=== PATIENT | male | born 1960 | race American Indian/Alaskan Native ===

== ENCOUNTER 2018-09-30 01:52 | Inpatient (IN) | payer OTHER ==
[2018-09-30 02:25] LABS: Basophils # (Auto) 0.1 K/mm3 (0.0-0.1); Basophils % (Auto) 0.9 % (0.0-1.8); Eosinophils # (Auto) 0.2 K/mm3 (0.0-0.4); Eosinophils % (Auto) 1.6 % (0.0-4.3); Lymphocytes # (Auto) 2.8 K/mm3 (1.2-5.4); Lymphocytes % (Auto) 24.6 % (13.4-35.0); Mean Corpuscular HGB Conc 34 % (32-34); Mean Corpuscular Volume 85 fl (84-94); Monocytes # (Auto) 0.8 K/mm3 (0.0-0.8); Monocytes % (Auto) 7.2 % (0.0-7.3); Platelet Count 417 K/mm3 (140-440); Red Blood Count 4.83 M/mm3 (3.65-5.03); Red Cell Distribution Width 14.8 % (13.2-15.2)
[2018-09-30 02:38] LABS: Alanine Aminotransferase 14 units/L (7-56); Albumin 4.4 g/dL (3.9-5); BUN/Creatinine Ratio 8; Blood Urea Nitrogen 9 mg/dL (9-20); Calcium 9.5 mg/dL (8.4-10.2); Hemolysis Index 7
[2018-09-30] MEDS ORDERED: MORPHINE IV ONE ×2 (03:10→06:46)
[2018-09-30] MEDS ORDERED: ZOFRAN IV ONE ×2 (03:10→06:46)
[2018-09-30] MEDS ORDERED: NACL 0.9% 1000 ML 1,000 ML IV ONE (03:10)
--- NOTE | 2018-09-30 03:18 | Emergency Department Report ---
<BOBBY BANEGAS - Last Filed: 09/30/18 05:58> ED Abdominal Pain HPI - General Chief Complaint: Abdominal Pain Stated Complaint: ABDOMINAL PAIN Time Seen by Provider: 09/30/18 03:08 Source: patient Mode of arrival: Ambulatory Limitations: No Limitations - History of Present Illness Initial Comments: pt is a 58 y/o aam with hx of htn, chf, Obesity, Ventral Hernia, s/p cholecystectomy 2018, last hernia repair 2016, who presents for abd pain and n/v since this am, subjective fever, pain is 8/10 , last po intake this am, pt states he usually goes to [place] for healthcare , but pain too bad to wait tonight. MD Complaint: abdominal pain Onset/Timin -: days(s) Location: periumbilical Radiation: LLQ, RLQ Migration to: periumbilical Severity: moderate Severity scale (0 -10): 7 Quality: aching, sharp Consistency: constant Improves With: nothing Worsens With: eating Associated Symptoms: nausea, vomiting, fever, constipation - Related Data Allergies Allergy/AdvReac Type Severity Reaction Status Date / Time No Known Allergies Allergy Verified 09/30/18 06:55 ED Review of Systems Constitutional: fever. denies: chills Eyes: denies: eye pain, eye discharge, vision change ENT: denies: ear pain, throat pain Respiratory: denies: cough, shortness of breath, wheezing Cardiovascular: edema (bila le ). denies: chest pain, palpitations Endocrine: no symptoms reported Gastrointestinal: abdominal pain, nausea, constipation Genitourinary: denies: urgency, dysuria Musculoskeletal: denies: back pain, joint swelling, arthralgia Skin: denies: rash, lesions Neurological: denies: headache, weakness, paresthesias Psychiatric: denies: anxiety, depression Hematological/Lymphatic: as per HPI ED Past Medical Hx - Past Medical History Previous Medical History?: Yes Hx Hypertension: Yes Hx Congestive Heart Failure: Yes - Surgical History Past Surgical History?: Yes Hx Cholecystectomy: Yes Additional Surgical History: hernia sx - Social History Smoking Status: Never Smoker ED Physical Exam - General Limitations: No Limitations General appearance: alert, in no apparent distress - Head Head exam: Present: atraumatic, normocephalic - Eye Eye exam: Present: normal appearance, PERRL, EOMI Pupils: Present: normal accommodation - ENT ENT exam: Present: normal orophraynx, mucous membranes moist, TM's normal bilaterally, normal external ear exam - Neck Neck exam: Present: normal inspection, full ROM. Absent: tenderness, meningismus, lymphadenopathy, thyromegaly - Expanded Neck Exam Expanded Neck exam: Absent: tenderness, midline deformity, anterior neck swelling, thyroid mass, carotid bruit, tracheal deviation - Respiratory Respiratory exam: Present: normal lung sounds bilaterally. Absent: respiratory distress, wheezes, stridor, chest wall tenderness, prolonged expiratory - Cardiovascular Cardiovascular Exam: Present: regular rate, normal rhythm, normal heart sounds - GI/Abdominal GI/Abdominal exam: Present: soft, distended, tenderness, guarding, rebound, diminished bowel sounds, hernia. Absent: rigid, bruit - Rectal Rectal exam: Present: deferred - Extremities Exam Extremities exam: Present: normal inspection, full ROM, normal capillary refill, pedal edema (mild bilat LE Edema nonpitting). Absent: tenderness, joint swel ling, calf tenderness - Back Exam Back exam: Present: normal inspection, full ROM. Absent: tenderness, CVA tenderness (R), CVA tenderness (L), muscle spasm, paraspinal tenderness, vertebral tenderness, rash noted - Neurological Exam Neurological exam: Present: alert, oriented X3, CN II-XII intact, normal gait, reflexes normal. Absent: motor sensory deficit - Psychiatric Psychiatric exam: Present: normal affect, normal mood - Skin Skin exam: Present: warm, dry, intact, normal color. Absent: rash ED Medical Decision Making - Lab Data Result diagrams: 09/30/18 02:03 09/30/18 02:00 - Radiology Data Radiology results: report reviewed, image reviewed Ordering Physician: BOBBY BANEGAS NP Date of Service: 09/30/18 Procedure(s): XR chest routine 2V Accession Number(s): [id number] cc: BOBBY BANEGAS NP Fluoro Time In Minutes: CHEST 2 VIEWS INDICATION / CLINICAL INFORMATION: Shortness of breath for 3 days. COMPARISON: None available. FINDINGS: SUPPORT DEVICES: None. HEART / MEDIASTINUM: No significant abnormality. LUNGS / PLEURA: There is mild bibasilar atelectasis. The lungs are otherwise clear. No significant pleural effusion. No pneumothorax. ADDITIONAL FINDINGS: No significant additional findings. IMPRESSION: Bibasilar atelectasis. Signer Name: Dakota Montoya MD Signed: 09/30/2018 4:02 AM Workstation Name: [id number] Transcribed By: MN Dictated By: Dakota Montoya MD Electronically Authenticated By: Dakota Montoya MD Signed Date/Time: 09/30/18401 DD/ 0 TD/TT: ED Disposition Clinical Impression: SBO (small bowel obstruction), Ventral hernia Disposition: OP ADMIT IP TO THIS HOSP Condition: Stable [facility] - 3-5 Days <LOLA TURCIOS - Last Filed: 09/30/18 08:47> ED Course - Reevaluation(s) Reevaluation #1: 09/30/18 07:00 sign out from Bobby Banegas NP to Lola Turcios PA-C pending CT abd/pelvis 7:30 AM: CT ab/pelvis shows SBO with multiple ventral hernias with dilated loops of bowel present in the hernia, pt made NPO, NGT ordered, case discussed with Dr. Dillon, Dr. Dillon took over pt and pt moved to the Main ED ED Medical Decision Making - Lab Data Result diagrams: 09/30/18 02:03 09/30/18 02:00 <CLIVE DILLON - Last Filed: 09/30/18 09:23> ED Review of Systems ROS: Stated complaint: ABDOMINAL PAIN Other details as noted in HPI ED Course Vital Signs 09/30/18 09/30/18 01:53 08:48 Temperature 97.6 F Pulse Rate 76 76 Respiratory 19 16 Rate Blood Pressure 193/104 Blood Pressure 141/91 [Left] O2 Sat by Pulse 96 97 Oximetry - Reevaluation(s) Reevaluation #2: 09/30/18 09:23 Patient received Dilaudid 1 mg since the NG tube. Patient placed in supine position I attempted to reduce right sided ventral hernia lateral to the midline incisional scar. I was able to partially reduce but unable to completely reduce this hernia. - Consultations Consultation #1: 09/30/18 08:09 case d/w Dr Hernandez, will consult ED Medical Decision Making - Lab Data Result diagrams: 09/30/18 02:03 09/30/18 02:00 - Medical Decision Making additional pain meds ordered ngt surgery consult hospitalist informed Critical Care Time: No Critical care attestation.: If time is entered above; I have spent that time in minutes in the direct care of this critically ill patient, excluding procedure time. ED Disposition Is pt being admited?: Yes Time of Disposition: 08:09 (Dr alegria/hosp)
[2018-09-30 03:55] LABS: INR 0.99 (0.87-1.13)
[2018-09-30 03:56] LABS: Partial Thromboplastin Time 26.5 Sec. (24.2-36.6)
--- NOTE | 2018-09-30 04:06 | XRay Report ---
CHEST 2 VIEWS INDICATION / CLINICAL INFORMATION: Shortness of breath for 3 days. COMPARISON: None available. FINDINGS: SUPPORT DEVICES: None. HEART / MEDIASTINUM: No significant abnormality. LUNGS / PLEURA: There is mild bibasilar atelectasis. The lungs are otherwise clear. No significant pl eural effusion. No pneumothorax. ADDITIONAL FINDINGS: No significant additional findings. IMPRESSION: Bibasilar atelectasis. Signer Name: Dakota Montoya MD Signed: 09/30/2018 4:02 AM Workstation Name: [id number]
[2018-09-30 04:47] LABS: Bilirubin,Urine NEG (Negative); Blood,Urine MOD (Negative); Color,Urine Yellow (Yellow); Mucus,Urine FEW /HPF; Urobilinogen,Urine < 2.0 mg/dL (<2.0)
[2018-09-30] MEDS ORDERED: ZOFRAN ONE (06:43)
[2018-09-30] MEDS ORDERED: MORPHINE ONE (06:43)
--- NOTE | 2018-09-30 07:28 | Cat Scan Report ---
CT ABDOMEN AND PELVIS WITH CONTRAST HISTORY: Right mid abdominal pain. Hernia. COMPARISON: No relevant prior imaging study available. TECHNIQUE: Axial, coronal and sagittal CT imaging of the abdomen and pelvis was performed after inje ction of 100 cc Omnipaque [address] scans at this location are performed using CT dose re duction for ALARA by means of automated exposure control. FINDINGS: LOWER CHEST: Mild dependent atelectasis is noted bilaterally. No additional significant abnormality. LIVER: No significant abnormality. BILIARY: The gallbladder is absent. No biliary ductal dilatation. PANCREAS: No significant abnormality. SPLEEN: No significant abnormality. ADRENALS: No significant abnormality. KIDNEYS AND URETERS: Bilateral renal cysts are seen without suspicious lesions. No stones or hydroure teronephrosis. GI TRACT: There are multiple ventral hernias containing fat and mildly dilated bowel loops without si gnificant inflammation. A transition point is seen near the surgical anastomosis located along the ri ght lower quadrant on images 58-71 of series 301. No significant abnormality of the stomach or colon. Unremarkable appendix. PERITONEUM: No free fluid. No free air. No fluid collection. LYMPH NODES: No significant adenopathy. VASCULATURE: The aorta is normal in caliber with mild generalized atherosclerosis. URINARY BLADDER: No significant abnormality. REPRODUCTIVE ORGANS: No significant abnormality. ADDITIONAL FINDINGS: None. SKELETAL SYSTEM: No significant abnormality. IMPRESSION: 1. Small bowel obstruction with a transition point as described above. 2. Multiple ventral hernias containing dilated bowel loops. Signer Name: Dakota Montoya MD Signed: 09/30/2018 7:24 AM Workstation Name: [id number]
[2018-09-30] MEDS ORDERED: DILAUDID IV ONE (07:54)
[2018-09-30] MEDS ORDERED: LIDOCAINE VISCOUS 2% PO ONE (07:54)
[2018-09-30] MEDS ORDERED: ZOFRAN IV PRN (10:07)
[2018-09-30] MEDS ORDERED: SODIUM CHLORIDE FLUSH SYRINGE 10 ML IV PRN (10:07)
--- NOTE | 2018-09-30 10:07 | History and Physical Report ---
History of Present Illness Date of examination: 09/30/18 Date of admission: 09/30/18 09:05 Chief complaint: n/v History of present illness: A 58-year-old male with past medical history of hypertension, CHF, obesity, ventral hernia, status post cholecystectomy in 2018 and hernia repair in 2017 who presents to emergency department with chief complaint of nausea, vomiting and abdominal pain. The patient reports that his nausea vomiting started this morning. He also reported subjective fever. Abdominal pain is diffuse and 8/10 in intensity. He denies any chest pain or shortness of breath. No headache or visual disturbances. No hematemesis. Past History Past Medical History: heart failure, hypertension, other (obesity) Past Surgical History: cholecystectomy, hernia repair Social history: no significant social history Family history: no significant family history Medications and Allergies Allergies Allergy/AdvReac Type Severity Reaction Status Date / Time No Known Allergies Allergy Verified 09/30/18 06:55 Home Medications Medication Instructions Recorded Confirmed Last Taken Type Unobtainable 09/30/18 09/30/18 Unknown History Review of Systems All systems: negative Exam - Constitutional Vitals: Temp Pulse Resp BP Pulse Ox 97.6 F 76 16 141/91 97 09/30/18 01:53 09/30/18 08:48 09/30/18 08:48 09/30/18 08:48 09/30/18 08:48 General appearance: Present: no acute distress, obese - EENT Eyes: Present: PERRL ENT: hearing intact, clear oral mucosa - Neck Neck: Present: supple, normal ROM - Respiratory Respiratory effort: normal Respiratory: bilateral: CTA - Cardiovascular Heart Sounds: Present: S1 & S2. Absent: rub, click - Extremities Extremities: pulses symmetrical, No edema Peripheral Pulses: within normal limits - Abdominal General gastrointestinal: Present: soft, non-tender, non-distended, normal bowel sounds Localized gastrointestinal: tender: diffuse (mild) Male genitourinary: Present: normal - Integumentary Integumentary: Present: clear, warm, dry - Musculoskeletal Musculoskeletal: gait normal, strength equal bilaterally - Psychiatric Psychiatric: appropriate mood/affect, intact judgment & insight - Neurologic Neurologic: CNII-XII intact, moves all extremities Results - Labs CBC & Chem 7: 09/30/18 02:03 09/30/18 02:00 Labs: Laboratory Last Values WBC 11.4 K/mm3 (4.5-11.0) H 09/30/18 02:03 RBC 4.83 M/mm3 (3.65-5.03) 09/30/18 02:03 Hgb 14.0 gm/dl (11.8-15.2) 09/30/18 02:03 Hct 41.0 % (35.5-45.6) 09/30/18 02:03 MCV 85 fl (84-94) 09/30/18 02:03 MCH 29 pg (28-32) 09/30/18 02:03 MCHC 34 % (32-34) 09/30/18 02:03 RDW 14.8 % (13.2-15.2) 09/30/18 02:03 Plt Count 417 K/mm3 (140-440) 09/30/18 02:03 Lymph % (Auto) 24.6 % (13.4-35.0) 09/30/18 02:03 Kaufman % (Auto) 7.2 % (0.0-7.3) 09/30/18 02:03 Eos % (Auto) 1.6 % (0.0-4.3) 09/30/18 02:03 Baso % (Auto) 0.9 % (0.0-1.8) 09/30/18 02:03 Lymph # 2.8 K/mm3 (1.2-5.4) 09/30/18 02:03 Kaufman # 0.8 K/mm3 (0.0-0.8) 09/30/18 02:03 Eos # 0.2 K/mm3 (0.0-0.4) 09/30/18 02:03 Baso # 0.1 K/mm3 (0.0-0.1) 09/30/18 02:03 Seg Neutrophils % 65.7 % (40.0-70.0) 09/30/18 02:03 Seg Neutrophils # 7.5 K/mm3 (1.8-7.7) 09/30/18 02:03 PT 12.8 Sec. (12.2-14.9) 09/30/18 03:20 INR 0.99 (0.87-1.13) 09/30/18 03:20 APTT 26.5 Sec. (24.2-36.6) 09/30/18 03:20 Sodium 140 mmol/L (137-145) 09/30/18 02:00 Potassium 3.7 mmol/L (3.6-5.0) 09/30/18 02:00 Chloride 99.3 mmol/L (98-107) 09/30/18 02:00 Carbon Dioxide 29 mmol/L (22-30) 09/30/18 02:00 15 mmol/L 09/30/18 02:00 BUN 9 mg/dL (9-20) 09/30/18 02:00 1.1 mg/dL (0.8-1.5) 09/30/18 02:00 Estimated GFR > 60 ml/min 09/30/18 02:00 8 % 09/30/18 02:00 Glucose 136 mg/dL (75-100) H 09/30/18 02:00 Lactic Acid 1.60 mmol/L (0.7-2.0) 09/30/18 03:20 Calcium 9.5 mg/dL (8.4-10.2) 09/30/18 02:00 0.20 mg/dL (0.1-1.2) 09/30/18 02:00 AST 18 units/L (5-40) 09/30/18 02:00 ALT 14 units/L (7-56) 09/30/18 02:00 78 units/L (35-129) 09/30/18 02:00 < 0.010 ng/mL (0.00-0.029) 09/30/18 03:20 8.4 g/dL (6.3-8.2) H 09/30/18 02:00 4.4 g/dL (3.9-5) 09/30/18 02:00 1.1 % 09/30/18 02:00 40 units/L (13-60) 09/30/18 03:20 Yellow (Yellow) 09/30/18 04:32 Clear (Clear) 09/30/18 04:32 5.0 (5.0-7.0) 09/30/18 04:32 Ur Specific Speculator 1.018 (1.003-1.030) 09/30/18 04:32 30 mg/dl mg/dL (Negative) 09/30/18 04:32 Neg mg/dL (Negative) 09/30/18 04:32 Neg mg/dL (Negative) 09/30/18 04:32 Mod (Negative) 09/30/18 04:32 Neg (Negative) 09/30/18 04:32 Neg (Negative) 09/30/18 04:32 < 2.0 mg/dL (<2.0) 09/30/18 04:32 Ur Leukocyte Esterase Neg (Negative) 09/30/18 04:32 1.0 /HPF (0.0-6.0) 09/30/18 04:32 3.0 /HPF (0.0-6.0) 09/30/18 04:32 U Epithel Cells (Auto) < 1.0 /HPF (0-13.0) 09/30/18 04:32 Few /HPF 09/30/18 04:32 Assessment and Plan Assessment and plan: Small bowel obstruction. CT scan revealed small bowel obstruction with a transition point seen near the surgical anastomosis located along the right lower quadrant. Surgery consultation pending. Conservative management for now with NPO status, NG tube to intermittent suction and IV fluid hydration Ventral hernia. Per surgery. Hypertension. IV hydralazine when necessary while nothing by mouth. Hyperlipidemia. Morbid obesity.
--- NOTE | 2018-09-30 12:31 | Progress Note ---
Assessment and Plan Full consult dictated: Morbidly obese male. sbo. multiple abd surgeries with multiple ventral / incisional hernias. no evidence of incarceration; clinically or on CT imp morbid obesity multitude of non incarcerated ventral hernias sbo rec NPO NG suction f/u abd series in am. may need bariatric surg eval in sbo does not resolve will follow History of present illness: A 58-year-old male with past medical history of hypertension, CHF, obesity, ventral hernia, status post cholecystectomy in 2018 and hernia repair in 2017 who presents to emergency department with chief complaint of nausea, vomiting and abdominal pain. The patient reports that his nausea vomiting started this morning. He also reported subjective fever. Abdominal pain is diffuse and 8/10 in intensity. He denies any chest pain or shortness of breath. No headache or visual disturbances. No hematemesis. Past History Past Medical History: heart failure, hypertension, other (obesity) Past Surgical History: cholecystectomy, hernia repair Social history: no significant social history Family history: no significant family history Selected Entries 09/30/18 09/30/18 01:53 08:48 Temperature 97.6 F Pulse Rate 76 Respiratory 16 Rate Blood Pressure 141/91 [Left] Laboratory Tests 09/30/18 09/30/18 02:00 02:03 WBC 11.4 H Hgb 14.0 Hct 41.0 Potassium 3.7 Objective Vital Signs - 12hr 09/30/18 09/30/18 01:53 08:48 Temperature 97.6 F Pulse Rate 76 76 Respiratory 19 16 Rate Blood Pressure 193/104 Blood Pressure 141/91 [Left] O2 Sat by Pulse 96 97 Oximetry - Labs 09/30/18 02:03 09/30/18 02:00 Diabetes panel 09/30/18 Range/Units 02:00 Sodium 140 (137-145) mmol/L Potassium 3.7 (3.6-5.0) mmol/L Chloride 99.3 (98-107) mmol/L Carbon Dioxide 29 (22-30) mmol/L BUN 9 (9-20) mg/dL Creatinine 1.1 (0.8-1.5) mg/dL Glucose 136 H (75-100) mg/dL Calcium 9.5 (8.4-10.2) mg/dL AST 18 (5-40) units/L ALT 14 (7-56) units/L Alkaline Phosphatase 78 (35-129) units/L Total Protein 8.4 H (6.3-8.2) g/dL Albumin 4.4 (3.9-5) g/dL Calcium panel 09/30/18 Range/Units 02:00 Calcium 9.5 (8.4-10.2) mg/dL Albumin 4.4 (3.9-5) g/dL Pituitary panel 09/30/18 Range/Units 02:00 Sodium 140 (137-145) mmol/L Potassium 3.7 (3.6-5.0) mmol/L Chloride 99.3 (98-107) mmol/L Carbon Dioxide 29 (22-30) mmol/L BUN 9 (9-20) mg/dL Creatinine 1.1 (0.8-1.5) mg/dL Glucose 136 H (75-100) mg/dL Calcium 9.5 (8.4-10.2) mg/dL Adrenal panel 09/30/18 Range/Units 02:00 Sodium 140 (137-145) mmol/L Potassium 3.7 (3.6-5.0) mmol/L Chloride 99.3 (98-107) mmol/L Carbon Dioxide 29 (22-30) mmol/L BUN 9 (9-20) mg/dL Creatinine 1.1 (0.8-1.5) mg/dL Glucose 136 H (75-100) mg/dL Calcium 9.5 (8.4-10.2) mg/dL Total Bilirubin 0.20 (0.1-1.2) mg/dL AST 18 (5-40) units/L ALT 14 (7-56) units/L Alkaline Phosphatase 78 (35-129) units/L Total Protein 8.4 H (6.3-8.2) g/dL Albumin 4.4 (3.9-5) g/dL
--- NOTE | 2018-09-30 14:35 | XRay Report ---
ABDOMINAL SERIES WITH PA CHEST 09/30/2018 INDICATION / CLINICAL INFORMATION: sbo. COMPARISON: 09/30/2018 abdominal/pelvic CT scan FINDINGS: The nasogastric tube is called mid stomach. There is persistent gaseous distention of several loops of small bowel localized to the upper abdomen . The colon remains nondistended. Urinary bladder is filled with contrast from recent abdominal CT scan. The accompanying chest x-ray shows mild atelectatic changes at both lung bases but no areas of airspa ce consolidation. IMPRESSION: No significant change in gaseous distention of small bowel. Signer Name: Claudio Dillard MD Signed: 09/30/2018 2:31 PM Workstation Name: [id number]
[2018-09-30] MEDS: D5/0.45NS 1,000 ML IV SCH (14:40)
[2018-09-30] MEDS: PEPCID IV SCH ×2 (14:41→22:33)
[2018-09-30] MEDS: MORPHINE IV PRN (15:03)
[2018-09-30] MEDS: SODIUM CHLORIDE FLUSH SYRINGE 10 ML IV SCH (22:33)
[2018-09-30] MEDS ORDERED: APRESOLINE IV PRN (23:49)
--- NOTE | 2018-10-01 00:35 | Consultation ---
REASON FOR CONSULTATION: Rule out small bowel obstruction. HISTORY OF PRESENT ILLNESS: The patient is a 58-year-old morbidly obese male who presented to the Emergency Room with recent onset of abdominal pain. Denied any nausea or vomiting. States his last bowel movement was yesterday. PAST MEDICAL HISTORY: Pertinent for morbid obesity as well as hypertension and sleep apnea. PAST SURGICAL HISTORY: The patient has had a multitude of abdominal surgeries, all done at [facility]. Apparently, the patient had a cholecystectomy, also umbilical hernia repair. Subsequent incisional hernia repair with some sort of bowel resection ? ALLERGIES: No known allergies. MEDICATIONS: " FAMILY HISTORY: Negative. SOCIAL HISTORY: Quit smoking and drinking approximately 15 years ago. PHYSICAL EXAMINATION: GENERAL: At this time revealed the patient to be morbidly obese. NG tube is in place and appears to be suctioning well. VITAL SIGNS: Show him to be afebrile with a temperature of 97.6, blood pressure is 141/91, pulse of 76, respirations 16. ABDOMEN: Examination of the abdomen once again reveals it to be morbidly obese. There are multiple scars noted. Also, multiple ventral/incisional hernias are seen. All of them appear to be reducible. No abdominal pain is noted at this time. LABORATORY DATA: Lab work at present includes a CBC, which shows a white count of 11.4, H and H is 14 and 41. Electrolytes are essentially within normal limits, including a sodium of 140, potassium 3.7, chloride of 99, BUN is 9, creatinine is 1.1. LFTs are also within normal limits. Glucose is 136. CT scan of the abdomen without any p.o. contrast was done, which I have reviewed with the radiologist. The findings are consistent with a small bowel obstruction, but the areas of herniation did not appear to be incarcerated, as dilated bowel loops were noted to come in and out of the hernia regions. Complex hernias are noted. IMPRESSION: At this time is that of a 58-year-old hypertensive, morbidly obese male, rule out small-bowel obstruction. RECOMMENDATIONS: At this time is to keep the patient n.p.o. on IV fluid hydration and NG suction. I will repeat abdominal series in the morning. Also, contemplate obtaining a bariatric surgeon evaluation if the small-bowel obstruction does not appear to be resolving, and thus, surgical intervention may need to be contemplated. I will follow with you. Thank you very much for consultation. JOB# [id number] LINDA/AYAZ
[2018-10-01 07:50] LABS: Basophils % (Auto) 0.4 % (0.0-1.8); Eosinophils # (Auto) 0.2 K/mm3 (0.0-0.4); Eosinophils % (Auto) 2.5 % (0.0-4.3); Hematocrit 40.6 % (35.5-45.6); Hemoglobin 13.5 gm/dl (11.8-15.2); Lymphocytes % (Auto) 30.4 % (13.4-35.0); Mean Corpuscular HGB Conc 33 % (32-34); Mean Corpuscular Volume 86 fl (84-94); Monocytes # (Auto) 0.9 K/mm3 (0.0-0.8); Platelet Count 354 K/mm3 (140-440); Red Blood Count 4.74 M/mm3 (3.65-5.03); Red Cell Distribution Width 14.8 % (13.2-15.2)
[2018-10-01 08:10] LABS: Alanine Aminotransferase 19 units/L (7-56); BUN/Creatinine Ratio 11; Blood Urea Nitrogen 11 mg/dL (9-20); Calcium 9.1 mg/dL (8.4-10.2); Hemolysis Index 7
--- NOTE | 2018-10-01 09:37 | XRay Report ---
ABDOMINAL SERIES WITH PA CHEST X-RAY 10/01/2018 INDICATION / CLINICAL INFORMATION: sbo. COMPARISON: 09/30/2018 FINDINGS: Small bowel gaseous distention is slightly improved. The colon gas pattern remains normal. No evidence of peritoneum. The accompanying chest x-ray shows no acute pulmonary disease. Signer Name: Claudio Dillard MD Signed: 10/01/2018 9:33 AM Workstation Name: [id number]
--- NOTE | 2018-10-01 10:20 | Progress Note ---
Assessment and Plan Pt somnolent but arousable (sleep apnea, hypoxemia? recent sedation?). Pulled out ng and had refused re-insertion. states "feeling better" Abd - slightly decreased distention. non tender Abd series - slight improvement stressed to pt the importance of ng tube reinsertion. Pt morbidly obese and very high risks of morbidity if re exploration required. needs ng suction Rx to try and prevent surgical exploration. Pt now states will accept reinsertion of ng. R.N. present during our discussion begin mineral oil thru ng repeat abd series in am Selected Entries 10/01/18 05:01 Temperature 98.0 F Pulse Rate 79 Respiratory 20 Rate Blood Pressure 148/91 Laboratory Tests 10/01/18 10/01/18 07:23 07:23 WBC 9.8 Hgb 13.5 Hct 40.6 Potassium 3.7 Objective Vital Signs - 12hr 09/30/18 10/01/18 10/01/18 23:30 00:02 05:01 Temperature 98.9 F 98.0 F Pulse Rate 85 85 79 Respiratory 20 20 Rate Blood Pressure 180/106 180/106 148/91 O2 Sat by Pulse 94 94 Oximetry - Labs 10/01/18 07:23 10/01/18 07:23 Diabetes panel 10/01/18 Range/Units 07:23 Sodium 143 (137-145) mmol/L Potassium 3.7 (3.6-5.0) mmol/L Chloride 103.3 (98-107) mmol/L Carbon Dioxide 30 (22-30) mmol/L BUN 11 (9-20) mg/dL Creatinine 1.0 (0.8-1.5) mg/dL Glucose 106 H (75-100) mg/dL Calcium 9.1 (8.4-10.2) mg/dL AST 15 (5-40) units/L ALT 19 (7-56) units/L Alkaline Phosphatase 74 (35-129) units/L Total Protein 7.8 (6.3-8.2) g/dL Albumin 4.0 (3.9-5) g/dL Calcium panel 10/01/18 Range/Units 07:23 Calcium 9.1 (8.4-10.2) mg/dL Albumin 4.0 (3.9-5) g/dL Pituitary panel 10/01/18 Range/Units 07:23 Sodium 143 (137-145) mmol/L Potassium 3.7 (3.6-5.0) mmol/L Chloride 103.3 (98-107) mmol/L Carbon Dioxide 30 (22-30) mmol/L BUN 11 (9-20) mg/dL Creatinine 1.0 (0.8-1.5) mg/dL Glucose 106 H (75-100) mg/dL Calcium 9.1 (8.4-10.2) mg/dL Adrenal panel 10/01/18 Range/Units 07:23 Sodium 143 (137-145) mmol/L Potassium 3.7 (3.6-5.0) mmol/L Chloride 103.3 (98-107) mmol/L Carbon Dioxide 30 (22-30) mmol/L BUN 11 (9-20) mg/dL Creatinine 1.0 (0.8-1.5) mg/dL Glucose 106 H (75-100) mg/dL Calcium 9.1 (8.4-10.2) mg/dL Total Bilirubin 0.60 (0.1-1.2) mg/dL AST 15 (5-40) units/L ALT 19 (7-56) units/L Alkaline Phosphatase 74 (35-129) units/L Total Protein 7.8 (6.3-8.2) g/dL Albumin 4.0 (3.9-5) g/dL
--- NOTE | 2018-10-01 11:12 | Progress Note ---
Assessment and Plan Assessment and plan: Small bowel obstruction. CT scan revealed small bowel obstruction with a transition point seen near the surgical anastomosis located along the right lower quadrant. Surgery following. Conservative management for now with NPO status, NG tube to intermittent suction and IV fluid hydration. Patient issa saenz pulled out NG tube and refused reinsertion. Surgery has now convinced the patient to have it reinserted. Ventral hernia. Per surgery. Hypertension. IV hydralazine when necessary while nothing by mouth. Hyperlipidemia. Morbid obesity. Probable OHS/SERGIO. Continue O2 History Interval history: Pulled out ng and had refused re-insertion. states "feeling better" Hospitalist Physical - Constitutional Vitals: Temp Pulse Resp BP Pulse Ox 98.0 F 79 20 148/91 94 10/01/18 05:01 10/01/18 05:01 10/01/18 05:01 10/01/18 05:01 10/01/18 05:01 General appearance: Present: no acute distress, obese - EENT Eyes: Present: PERRL, EOM intact ENT: hearing intact, clear oral mucosa, dentition normal - Neck Neck: Present: supple, normal ROM - Respiratory Respiratory effort: normal Respiratory: bilateral: CTA - Cardiovascular Rhythm: regular Heart Sounds: Present: S1 & S2. Absent: gallop, rub - Extremities Extremities: no ischemia, No edema, Full ROM - Abdominal General gastrointestinal: soft, non-tender, non-distended, normal bowel sounds - Integumentary Integumentary: Present: clear, warm, dry - Neurologic Neurologic: CNII-XII intact, moves all extremities Results - Labs CBC & Chem 7: 10/01/18 07:23 10/01/18 07:23 Labs: Laboratory Last Values WBC 9.8 K/mm3 (4.5-11.0) 10/01/18 07:23 RBC 4.74 M/mm3 (3.65-5.03) 10/01/18 07:23 Hgb 13.5 gm/dl (11.8-15.2) 10/01/18 07:23 Hct 40.6 % (35.5-45.6) 10/01/18 07:23 MCV 86 fl (84-94) 10/01/18 07:23 MCH 29 pg (28-32) 10/01/18 07:23 MCHC 33 % (32-34) 10/01/18 07:23 RDW 14.8 % (13.2-15.2) 10/01/18 07:23 Plt Count 354 K/mm3 (140-440) 10/01/18 07:23 Lymph % (Auto) 30.4 % (13.4-35.0) 10/01/18 07:23 [place] % (Auto) 9.0 % (0.0-7.3) H 10/01/18 07:23 Eos % (Auto) 2.5 % (0.0-4.3) 10/01/18 07:23 Baso % (Auto) 0.4 % (0.0-1.8) 10/01/18 07:23 Lymph # 3.0 K/mm3 (1.2-5.4) 10/01/18 07:23 [place] # 0.9 K/mm3 (0.0-0.8) H 10/01/18 07:23 Eos # 0.2 K/mm3 (0.0-0.4) 10/01/18 07:23 Baso # 0.0 K/mm3 (0.0-0.1) 10/01/18 07:23 Seg Neutrophils % 57.7 % (40.0-70.0) 10/01/18 07:23 Seg Neutrophils # 5.7 K/mm3 (1.8-7.7) 10/01/18 07:23 PT 12.8 Sec. (12.2-14.9) 09/30/18 03:20 INR 0.99 (0.87-1.13) 09/30/18 03:20 APTT 26.5 Sec. (24.2-36.6) 09/30/18 03:20 Sodium 143 mmol/L (137-145) 10/01/18 07:23 Potassium 3.7 mmol/L (3.6-5.0) 10/01/18 07:23 Chloride 103.3 mmol/L (98-107) 10/01/18 07:23 Carbon Dioxide 30 mmol/L (22-30) 10/01/18 07:23 13 mmol/L 10/01/18 07:23 BUN 11 mg/dL (9-20) 10/01/18 07:23 1.0 mg/dL (0.8-1.5) 10/01/18 07:23 Estimated GFR > 60 ml/min 10/01/18 07:23 11 % 10/01/18 07:23 Glucose 106 mg/dL (75-100) H 10/01/18 07:23 Lactic Acid 1.60 mmol/L (0.7-2.0) 09/30/18 03:20 Calcium 9.1 mg/dL (8.4-10.2) 10/01/18 07:23 0.60 mg/dL (0.1-1.2) 10/01/18 07:23 AST 15 units/L (5-40) 10/01/18 07:23 ALT 19 units/L (7-56) 10/01/18 07:23 74 units/L (35-129) 10/01/18 07:23 < 0.010 ng/mL (0.00-0.029) 09/30/18 03:20 7.8 g/dL (6.3-8.2) 10/01/18 07:23 4.0 g/dL (3.9-5) 10/01/18 07:23 1.1 % 10/01/18 07:23 40 units/L (13-60) 09/30/18 03:20 Yellow (Yellow) 09/30/18 04:32 Clear (Clear) 09/30/18 04:32 5.0 (5.0-7.0) 09/30/18 04:32 Ur Specific [place] 1.018 (1.003-1.030) 09/30/18 04:32 30 mg/dl mg/dL (Negative) 09/30/18 04:32 Neg mg/dL (Negative) 09/30/18 04:32 Neg mg/dL (Negative) 09/30/18 04:32 Mod (Negative) 09/30/18 04:32 Neg (Negative) 09/30/18 04:32 Neg (Negative) 09/30/18 04:32 < 2.0 mg/dL (<2.0) 09/30/18 04:32 Ur Leukocyte Esterase Neg (Negative) 09/30/18 04:32 1.0 /HPF (0.0-6.0) 09/30/18 04:32 3.0 /HPF (0.0-6.0) 09/30/18 04:32 U Epithel Cells (Auto) < 1.0 /HPF (0-13.0) 09/30/18 04:32 Few /HPF 09/30/18 04:32 Active Medications - Current Medications Current Medications: Generic Name Dose Route Start Last Admin Trade Name Freq PRN Reason Stop Dose Admin Acetaminophen 650 mg 09/30/18 10:07 Tylenol PO Q4H PRN Pain MILD(1-3)/Fever >100.5/GU Famotidine 20 mg 09/30/18 13:00 09/30/18 22:33 Pepcid IV 20 mg BID VALENCIA Administration Hydralazine HCl 5 mg 09/30/18 23:49 10/01/18 00:02 Apresoline IV 5 mg Q6H PRN Administration Hypertension Dextrose/Sodium Chloride 1,000 mls @ 75 mls/hr 09/30/18 11:00 09/30/18 14:40 D5/0.45ns IV 75 mls/hr DIRECT VALENCIA Administration Morphine Sulfate 2 mg 09/30/18 14:46 09/30/18 15:03 Morphine IV 2 mg Q6H PRN Administration Pain, Moderate (4-6) Ondansetron HCl 4 mg 09/30/18 10:07 Zofran IV Q8H PRN Nausea And Vomiting Sodium Chloride 10 ml 09/30/18 22:00 09/30/18 22:33 Sodium Chloride Flush Syringe 10 Ml IV 10 ml BID VALENCIA Administration Sodium Chloride 10 ml 09/30/18 10:07 Sodium Chloride Flush Syringe 10 Ml IV PRN PRN LINE FLUSH
[2018-10-01] MEDS: SODIUM CHLORIDE FLUSH SYRINGE 10 ML IV SCH ×2 (11:25→23:00)
[2018-10-01] MEDS: D5/0.45NS 1,000 ML IV SCH ×2 (11:25→23:35)
[2018-10-01] MEDS: PEPCID IV SCH ×2 (11:25→22:59)
[2018-10-01] MEDS: MORPHINE IV PRN ×2 (12:25→18:47)
[2018-10-01] MEDS: TYLENOL PO PRN ×2 (15:49→21:07)
[2018-10-01] MEDS: MINERAL OIL PO SCH ×3 (15:49→22:52)
[2018-10-02] MEDS: MINERAL OIL PO SCH ×6 (02:38→21:35)
[2018-10-02] MEDS: PEPCID IV SCH ×2 (10:08→21:34)
[2018-10-02] MEDS: SODIUM CHLORIDE FLUSH SYRINGE 10 ML IV SCH ×2 (10:08→21:35)
--- NOTE | 2018-10-02 11:50 | Progress Note ---
Assessment and Plan Assessment and plan: Small bowel obstruction. Surgery following. Conservative management for now with NPO status, NG tube to intermittent suction and IV fluid hydration. NG tube came out again yesterday. Await surgical recommendations regarding diet versus reinsertion of NG tube. KUB ordered Ventral hernia. Per surgery. Hypertension. IV hydralazine when necessary while nothing by mouth. Hyperlipidemia. Morbid obesity. Probable OHS/SERGIO. Continue O2 History Interval history: Patient states that N G-tube "fell out". He denies pulling it out. He wants to go home. Hospitalist Physical - Constitutional Vitals: Temp Pulse Resp BP Pulse Ox 97.9 F 85 18 138/70 95 10/02/18 06:10 10/02/18 06:45 10/02/18 06:45 10/02/18 06:42 10/02/18 06:45 General appearance: Present: no acute distress, obese - EENT Eyes: Present: PERRL, EOM intact ENT: hearing intact, clear oral mucosa, dentition normal - Neck Neck: Present: supple, normal ROM - Respiratory Respiratory effort: normal Respiratory: bilateral: CTA - Cardiovascular Rhythm: regular Heart Sounds: Present: S1 & S2. Absent: gallop, rub - Extremities Extremities: no ischemia, No edema, Full ROM - Abdominal General gastrointestinal: soft, non-tender, non-distended, normal bowel sounds - Integumentary Integumentary: Present: clear, warm, dry - Neurologic Neurologic: CNII-XII intact, moves all extremities Results - Labs CBC & Chem 7: 10/01/18 07:23 10/01/18 07:23 Labs: Laboratory Last Values WBC 9.8 K/mm3 (4.5-11.0) 10/01/18 07:23 RBC 4.74 M/mm3 (3.65-5.03) 10/01/18 07:23 Hgb 13.5 gm/dl (11.8-15.2) 10/01/18 07:23 Hct 40.6 % (35.5-45.6) 10/01/18 07:23 MCV 86 fl (84-94) 10/01/18 07:23 MCH 29 pg (28-32) 10/01/18 07:23 MCHC 33 % (32-34) 10/01/18 07:23 RDW 14.8 % (13.2-15.2) 10/01/18 07:23 Plt Count 354 K/mm3 (140-440) 10/01/18 07:23 Lymph % (Auto) 30.4 % (13.4-35.0) 10/01/18 07:23 [place] % (Auto) 9.0 % (0.0-7.3) H 10/01/18 07:23 Eos % (Auto) 2.5 % (0.0-4.3) 10/01/18 07:23 Baso % (Auto) 0.4 % (0.0-1.8) 10/01/18 07:23 Lymph # 3.0 K/mm3 (1.2-5.4) 10/01/18 07:23 [place] # 0.9 K/mm3 (0.0-0.8) H 10/01/18 07:23 Eos # 0.2 K/mm3 (0.0-0.4) 10/01/18 07:23 Baso # 0.0 K/mm3 (0.0-0.1) 10/01/18 07:23 Seg Neutrophils % 57.7 % (40.0-70.0) 10/01/18 07:23 Seg Neutrophils # 5.7 K/mm3 (1.8-7.7) 10/01/18 07:23 PT 12.8 Sec. (12.2-14.9) 09/30/18 03:20 INR 0.99 (0.87-1.13) 09/30/18 03:20 APTT 26.5 Sec. (24.2-36.6) 09/30/18 03:20 Sodium 143 mmol/L (137-145) 10/01/18 07:23 Potassium 3.7 mmol/L (3.6-5.0) 10/01/18 07:23 Chloride 103.3 mmol/L (98-107) 10/01/18 07:23 Carbon Dioxide 30 mmol/L (22-30) 10/01/18 07:23 13 mmol/L 10/01/18 07:23 BUN 11 mg/dL (9-20) 10/01/18 07:23 1.0 mg/dL (0.8-1.5) 10/01/18 07:23 Estimated GFR > 60 ml/min 10/01/18 07:23 11 % 10/01/18 07:23 Glucose 106 mg/dL (75-100) H 10/01/18 07:23 Lactic Acid 1.60 mmol/L (0.7-2.0) 09/30/18 03:20 Calcium 9.1 mg/dL (8.4-10.2) 10/01/18 07:23 0.60 mg/dL (0.1-1.2) 10/01/18 07:23 AST 15 units/L (5-40) 10/01/18 07:23 ALT 19 units/L (7-56) 10/01/18 07:23 74 units/L (35-129) 10/01/18 07:23 < 0.010 ng/mL (0.00-0.029) 09/30/18 03:20 7.8 g/dL (6.3-8.2) 10/01/18 07:23 4.0 g/dL (3.9-5) 10/01/18 07:23 1.1 % 10/01/18 07:23 40 units/L (13-60) 09/30/18 03:20 Yellow (Yellow) 09/30/18 04:32 Clear (Clear) 09/30/18 04:32 5.0 (5.0-7.0) 09/30/18 04:32 Ur Specific [place] 1.018 (1.003-1.030) 09/30/18 04:32 30 mg/dl mg/dL (Negative) 09/30/18 04:32 Neg mg/dL (Negative) 09/30/18 04:32 Neg mg/dL (Negative) 09/30/18 04:32 Mod (Negative) 09/30/18 04:32 Neg (Negative) 09/30/18 04:32 Neg (Negative) 09/30/18 04:32 < 2.0 mg/dL (<2.0) 09/30/18 04:32 Ur Leukocyte Esterase Neg (Negative) 09/30/18 04:32 1.0 /HPF (0.0-6.0) 09/30/18 04:32 3.0 /HPF (0.0-6.0) 09/30/18 04:32 U Epithel Cells (Auto) < 1.0 /HPF (0-13.0) 09/30/18 04:32 Few /HPF 09/30/18 04:32 Active Medications - Current Medications Current Medications: Generic Name Dose Route Start Last Admin Trade Name Freq PRN Reason Stop Dose Admin Acetaminophen 650 mg 09/30/18 10:07 10/01/18 21:07 Tylenol PO 650 mg Q4H PRN Administration Pain MILD(1-3)/Fever >100.5/GU Famotidine 20 mg 09/30/18 13:00 10/02/18 10:08 Pepcid IV 20 mg BID VALENCIA Administration Hydralazine HCl 10 mg 10/01/18 11:11 Apresoline IV Q6H PRN HTN SBP>150 Dextrose/Sodium Chloride 1,000 mls @ 75 mls/hr 09/30/18 11:00 10/01/18 23:35 D5/0.45ns IV 75 mls/hr DIRECT VALENCIA Administration Mineral Oil 30 ml 10/01/18 14:00 10/02/18 10:08 Mineral Oil PO 30 ml Q4H VALENCIA Administration Morphine Sulfate 2 mg 09/30/18 14:46 10/01/18 18:47 Morphine IV 2 mg Q6H PRN Administration Pain, Moderate (4-6) Ondansetron HCl 4 mg 09/30/18 10:07 Zofran IV Q8H PRN Nausea And Vomiting Sodium Chloride 10 ml 09/30/18 22:00 10/02/18 10:08 Sodium Chloride Flush Syringe 10 Ml IV 10 ml BID VALENCIA Administration Sodium Chloride 10 ml 09/30/18 10:07 Sodium Chloride Flush Syringe 10 Ml IV PRN PRN LINE FLUSH Nutrition/Malnutrition Assess - Dietary Evaluation Nutrition/Malnutrition Findings: Nutrition Notes Start: 10/01/18 17:30 Freq: Status: Active Protocol: Document 10/01/18 17:30 RM (Rec: 10/01/18 17:37 RM [id number]) Nutrition Notes Need for Assessment generated from: MST Initial or Follow up Assessment Current Diagnosis Hypertension,Heart Failure, Hyperlipidemia Other Pertinent Diagnosis Ventral hernia, SBO Current Diet NPO Labs/Tests Reviewed Pertinent Medications Reviewed Height 5 ft 7 in Weight 150.4 kg Usual Body Weight 143.18 kg [place] Body Weight (kg) 67.27 BMI 51.9 Subjective/Other Information Screened for malnutrition. NG tube in place for suction at time of visit. 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 Stated UBW was 315 lbs 1 month ago. Burn Absent Trauma Absent #1 Nutrition Diagnosis Inadequate oral intake Etiology SBO As Evidenced by Signs and Symptoms NPO status Is patient on ventilator? No Is Patient Ambulatory and/or Out of Bed Yes REE-([facility]-ambulatory/OOB) [ 2980.419 NUTR.MSJOOB] Kcal/Kg value to use for calculation 16 Approximate Energy Requirements Using 2406 kcal/Kg Calculation Used for Recommendations Kcal/kg Additional Notes Protein Needs: 87-109g (0.8-1g /kg 109 kg adjBW) Fluid Needs: 1 ml/kcal Nutrition Intervention Change Diet Order: Advance diet when medically able Add Supplement/Snack (indicate name/kcal Ensure Clear 1 daily once diet /protein ) advanced Provides kCal: 240 Provides Protein (gm) 8 Goal #1 Diet advancement Anticipated Discharge Needs: Unable to determine at this time Follow-Up By: 10/05/18 Additional Comments Follow for diet advancement
--- NOTE | 2018-10-02 12:02 | Progress Note ---
Assessment and Plan Pt refused NG. states that he's signing out AMA. + flatus. Abd soft, non tender. +BS Abd series had been ordered for 8 am today but still not done. stable clinically improved awaiting abd series if pt does not sign out. Selected Entries 10/02/18 10/02/18 10/02/18 06:10 06:42 06:45 Temperature 97.9 F Pulse Rate 85 Respiratory 18 Rate Blood Pressure 138/70 Objective Vital Signs - 12hr 10/02/18 10/02/18 10/02/18 06:10 06:42 06:45 Temperature 97.9 F Pulse Rate 90 64 85 Respiratory 20 18 18 Rate Blood Pressure 171/80 138/70 O2 Sat by Pulse 92 91 95 Oximetry - Labs 10/01/18 07:23 10/01/18 07:23
--- NOTE | 2018-10-02 12:33 | XRay Report ---
Examination: Abdominal radiograph series with PA chest radiograph, 10/02/2018 Clinical information: Abdominal pain. History of small bowel obstruction. Comparison: Abdominal radiograph series, 10/01/2018 and 09/30/2018 Findings: Again noted are several mildly gas-distended loops of bowel throughout the abdomen which do not appea r significantly changed when compared to the recent previous study. Review of bony structures demonstrate no evidence of acute bony abnormality. No subdiaphragmatic free air is visualized. The accompanying PA chest radiograph demonstrates no evidence of acute cardiopulmonary process. Impression: 1. No significant change in gas distended bowel loops throughout the abdomen. Signer Name: Genie Powell MD Signed: 10/02/2018 12:29 PM Workstation Name: [id number]
[2018-10-02] MEDS: D5/0.45NS 1,000 ML IV SCH (15:20)
[2018-10-02] MEDS: APRESOLINE IV PRN (23:42)
[2018-10-03] MEDS: MINERAL OIL PO SCH ×6 (01:31→21:13)
[2018-10-03] MEDS: D5/0.45NS 1,000 ML IV SCH (05:25)
--- NOTE | 2018-10-03 08:32 | XRay Report ---
Examination: Abdominal radiograph series with PA chest radiograph, 10/03/2018 Clinical information: History of small bowel obstruction Comparison: Abdominal radiograph series, 10/03/2018 Findings: Multiple loops of gas-distended bowel overall have increased in prominence since the previous study. Evaluation of bony structures demonstrate no definitive evidence of acute bony abnormality. The accompanying PA chest radiograph demonstrates no evidence of acute cardiopulmonary process. Impression: 1. Interval increase of multiple loops of gas-distended bowel throughout the abdomen. The appearance is suggestive of ileus. Signer Name: Genie Powell MD Signed: 10/03/2018 8:28 AM Workstation Name: [id number]
--- NOTE | 2018-10-03 09:43 | Progress Note ---
Assessment and Plan Assessment and plan: Small bowel obstruction. Surgery following. Conservative management for now with NPO status, NG tube to intermittent suction and IV fluid hydration. KUB actually appears to be worse. Patient noncompliant and reports he ate a pack of cookies last night. Ventral hernia. Per surgery. Hypertension. IV hydralazine when necessary while nothing by mouth. Hyperlipidemia. Morbid obesity. Probable OHS/SERGIO. Continue O2 History Interval history: Patient states that he ate a pack of cookies last night. Patient was counseled on importance of NPO Hospitalist Physical - Constitutional Vitals: Temp Pulse Resp BP Pulse Ox 97.7 F 74 24 154/78 96 10/03/18 05:32 10/03/18 05:32 10/03/18 05:32 10/03/18 05:32 10/03/18 05:32 General appearance: Present: no acute distress, obese - EENT Eyes: Present: PERRL, EOM intact ENT: hearing intact, clear oral mucosa, dentition normal - Neck Neck: Present: supple, normal ROM - Respiratory Respiratory effort: normal Respiratory: bilateral: CTA - Cardiovascular Rhythm: regular Heart Sounds: Present: S1 & S2. Absent: gallop, rub - Extremities Extremities: no ischemia, No edema, Full ROM - Abdominal General gastrointestinal: soft, non-tender, non-distended, normal bowel sounds - Integumentary Integumentary: Present: clear, warm, dry - Neurologic Neurologic: CNII-XII intact, moves all extremities Results - Labs CBC & Chem 7: 10/01/18 07:23 10/01/18 07:23 Labs: Laboratory Last Values WBC 9.8 K/mm3 (4.5-11.0) 10/01/18 07:23 RBC 4.74 M/mm3 (3.65-5.03) 10/01/18 07:23 Hgb 13.5 gm/dl (11.8-15.2) 10/01/18 07:23 Hct 40.6 % (35.5-45.6) 10/01/18 07:23 MCV 86 fl (84-94) 10/01/18 07:23 MCH 29 pg (28-32) 10/01/18 07:23 MCHC 33 % (32-34) 10/01/18 07:23 RDW 14.8 % (13.2-15.2) 10/01/18 07:23 Plt Count 354 K/mm3 (140-440) 10/01/18 07:23 Lymph % (Auto) 30.4 % (13.4-35.0) 10/01/18 07:23 [place] % (Auto) 9.0 % (0.0-7.3) H 10/01/18 07:23 Eos % (Auto) 2.5 % (0.0-4.3) 10/01/18 07:23 Baso % (Auto) 0.4 % (0.0-1.8) 10/01/18 07:23 Lymph # 3.0 K/mm3 (1.2-5.4) 10/01/18 07:23 [place] # 0.9 K/mm3 (0.0-0.8) H 10/01/18 07:23 Eos # 0.2 K/mm3 (0.0-0.4) 10/01/18 07:23 Baso # 0.0 K/mm3 (0.0-0.1) 10/01/18 07:23 Seg Neutrophils % 57.7 % (40.0-70.0) 10/01/18 07:23 Seg Neutrophils # 5.7 K/mm3 (1.8-7.7) 10/01/18 07:23 PT 12.8 Sec. (12.2-14.9) 09/30/18 03:20 INR 0.99 (0.87-1.13) 09/30/18 03:20 APTT 26.5 Sec. (24.2-36.6) 09/30/18 03:20 Sodium 143 mmol/L (137-145) 10/01/18 07:23 Potassium 3.7 mmol/L (3.6-5.0) 10/01/18 07:23 Chloride 103.3 mmol/L (98-107) 10/01/18 07:23 Carbon Dioxide 30 mmol/L (22-30) 10/01/18 07:23 13 mmol/L 10/01/18 07:23 BUN 11 mg/dL (9-20) 10/01/18 07:23 1.0 mg/dL (0.8-1.5) 10/01/18 07:23 Estimated GFR > 60 ml/min 10/01/18 07:23 11 % 10/01/18 07:23 Glucose 106 mg/dL (75-100) H 10/01/18 07:23 Lactic Acid 1.60 mmol/L (0.7-2.0) 09/30/18 03:20 Calcium 9.1 mg/dL (8.4-10.2) 10/01/18 07:23 0.60 mg/dL (0.1-1.2) 10/01/18 07:23 AST 15 units/L (5-40) 10/01/18 07:23 ALT 19 units/L (7-56) 10/01/18 07:23 74 units/L (35-129) 10/01/18 07:23 < 0.010 ng/mL (0.00-0.029) 09/30/18 03:20 7.8 g/dL (6.3-8.2) 10/01/18 07:23 4.0 g/dL (3.9-5) 10/01/18 07:23 1.1 % 10/01/18 07:23 40 units/L (13-60) 09/30/18 03:20 Yellow (Yellow) 09/30/18 04:32 Clear (Clear) 09/30/18 04:32 5.0 (5.0-7.0) 09/30/18 04:32 Ur Specific [place] 1.018 (1.003-1.030) 09/30/18 04:32 30 mg/dl mg/dL (Negative) 09/30/18 04:32 Neg mg/dL (Negative) 09/30/18 04:32 Neg mg/dL (Negative) 09/30/18 04:32 Mod (Negative) 09/30/18 04:32 Neg (Negative) 09/30/18 04:32 Neg (Negative) 09/30/18 04:32 < 2.0 mg/dL (<2.0) 09/30/18 04:32 Ur Leukocyte Esterase Neg (Negative) 09/30/18 04:32 1.0 /HPF (0.0-6.0) 09/30/18 04:32 3.0 /HPF (0.0-6.0) 09/30/18 04:32 U Epithel Cells (Auto) < 1.0 /HPF (0-13.0) 09/30/18 04:32 Few /HPF 09/30/18 04:32 Active Medications - Current Medications Current Medications: Generic Name Dose Route Start Last Admin Trade Name Freq PRN Reason Stop Dose Admin Acetaminophen 650 mg 09/30/18 10:07 10/01/18 21:07 Tylenol PO 650 mg Q4H PRN Administration Pain MILD(1-3)/Fever >100.5/GU Famotidine 20 mg 09/30/18 13:00 10/02/18 21:34 Pepcid IV 20 mg BID VALENCIA Administration Hydralazine HCl 10 mg 10/01/18 11:11 10/02/18 23:42 Apresoline IV 10 mg Q6H PRN Administration HTN SBP>150 Dextrose/Sodium Chloride 1,000 mls @ 75 mls/hr 09/30/18 11:00 10/03/18 05:25 D5/0.45ns IV 75 mls/hr DIRECT VALENCIA Administration Mineral Oil 30 ml 10/01/18 14:00 10/03/18 05:23 Mineral Oil PO 30 ml Q4H VALENCIA Administration Morphine Sulfate 2 mg 09/30/18 14:46 10/01/18 18:47 Morphine IV 2 mg Q6H PRN Administration Pain, Moderate (4-6) Ondansetron HCl 4 mg 09/30/18 10:07 Zofran IV Q8H PRN Nausea And Vomiting Sodium Chloride 10 ml 09/30/18 22:00 10/02/18 21:35 Sodium Chloride Flush Syringe 10 Ml IV 10 ml BID VALENCIA Administration Sodium Chloride 10 ml 09/30/18 10:07 Sodium Chloride Flush Syringe 10 Ml IV PRN PRN LINE FLUSH Nutrition/Malnutrition Assess - Dietary Evaluation Nutrition/Malnutrition Findings: Nutrition Notes Start: 10/01/18 17:30 Freq: Status: Active Protocol: Document 10/01/18 17:30 RM (Rec: 10/01/18 17:37 RM [id number]) Nutrition Notes Need for Assessment generated from: MST Initial or Follow up Assessment Current Diagnosis Hypertension,Heart Failure, Hyperlipidemia Other Pertinent Diagnosis Ventral hernia, SBO Current Diet NPO Labs/Tests Reviewed Pertinent Medications Reviewed Height 5 ft 7 in Weight 150.4 kg Usual Body Weight 143.18 kg [place] Body Weight (kg) 67.27 BMI 51.9 Subjective/Other Information Screened for malnutrition. NG tube in place for suction at time of visit. 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 Stated UBW was 315 lbs 1 month ago. Burn Absent Trauma Absent #1 Nutrition Diagnosis Inadequate oral intake Etiology SBO As Evidenced by Signs and Symptoms NPO status Is patient on ventilator? No Is Patient Ambulatory and/or Out of Bed Yes REE-([place]-ambulatory/OOB) [ 2980.419 NUTR.MSJOOB] Kcal/Kg value to use for calculation 16 Approximate Energy Requirements Using 2406 kcal/Kg Calculation Used for Recommendations Kcal/kg Additional Notes Protein Needs: 87-109g (0.8-1g /kg 109 kg adjBW) Fluid Needs: 1 ml/kcal Nutrition Intervention Change Diet Order: Advance diet when medically able Add Supplement/Snack (indicate name/kcal Ensure Clear 1 daily once diet /protein ) advanced Provides kCal: 240 Provides Protein (gm) 8 Goal #1 Diet advancement Anticipated Discharge Needs: Unable to determine at this time Follow-Up By: 10/05/18 Additional Comments Follow for diet advancement
[2018-10-03] MEDS: PEPCID IV SCH ×2 (10:08→21:13)
[2018-10-03] MEDS: SODIUM CHLORIDE FLUSH SYRINGE 10 ML IV SCH ×2 (10:15→21:13)
--- NOTE | 2018-10-03 10:37 | Progress Note ---
Assessment and Plan Pt states passing flatus. denies nausea, cramps, or abd pain. Abd soft, non tender Abd series - more of an ileus pattern now. attempt cl liq no carbonated drinks. Objective Vital Signs - 12hr 10/02/18 10/02/18 10/02/18 23:13 23:42 23:53 Temperature 98.5 F Pulse Rate 77 112 H Respiratory 20 20 Rate Blood Pressure 156/84 156/84 O2 Sat by Pulse 95 100 Oximetry 10/03/18 05:32 Temperature 97.7 F Pulse Rate 74 Respiratory 24 Rate Blood Pressure 154/78 O2 Sat by Pulse 96 Oximetry - Labs 10/01/18 07:23 10/01/18 07:23
[2018-10-03] MEDS: APRESOLINE IV PRN (11:23)
[2018-10-04] MEDS: APRESOLINE IV PRN (00:04)
[2018-10-04] MEDS: D5/0.45NS 1,000 ML IV SCH (00:04)
[2018-10-04] MEDS: MINERAL OIL PO SCH ×3 (02:00→10:32)
[2018-10-04] MEDS: PEPCID IV SCH (10:32)
[2018-10-04] MEDS: SODIUM CHLORIDE FLUSH SYRINGE 10 ML IV SCH (10:37)
--- NOTE | 2018-10-04 12:01 | Progress Note ---
Subjective Date of service: 10/04/18 Interval history: A/P: Small bowel obstruction. Surgery following. Conservative management . Started on clear liquid diet . KUB actually appears to be worse. Patient noncompliant and reports he ate a pack of cookies He has no complaints and he states that he is ready to go home He denies any abdominal pain nausea or vomiting ? Advanced to full liquids/ we will wait for follow-up by general surgery Large Ventral hernia.: No evidence of obstruction or incarceration Surgery following Hypertension. VS Reviewed reviewed Restart on amlodipine 5 mg Hold off on lisinopril and hydrochlorothiazide for now IV hydralazine when necessary Hyperlipidemia. Not on statin for review of her medications Morbid obesity. Likely secondary to excess calories Importance of diet and weight loss and long-term side effects of obesity explained to the patient Subjective Patient is alert and oriented and offers no specific complaints. He denies any fever or chills nausea vomiting or abdominal pain 12 point review of systems is essentially negative Objective - Constitutional Vitals: Vital Signs - 12hr 10/04/18 10/04/18 00:04 05:38 Temperature 98.4 F Pulse Rate 77 Respiratory 22 Rate Blood Pressure 152/83 147/80 O2 Sat by Pulse 96 Oximetry General appearance: Present: no acute distress, obese - EENT Eyes: PERRL, EOM intact ENT: hearing intact, clear oral mucosa - Neck Neck: supple, normal ROM - Respiratory Respiratory effort: normal Respiratory: bilateral: CTA - Cardiovascular Rhythm: regular Heart Sounds: Present: S1 & S2 Extremities: No edema - Gastrointestinal General gastrointestinal: Present: soft, non-tender, hernia (large ventral hernia in the right mid abdomen) Rectal Exam: deferred - Genitourinary Male genitourinary: deferred - Integumentary Integumentary: clear - Musculoskeletal Musculoskeletal: strength equal bilaterally - Neurologic Neurologic: CNII-XII intact - Psychiatric Psychiatric: appropriate mood/affect - Labs CBC & Chem 7: 10/01/18 07:23 10/01/18 07:23
[2018-10-04 12:40] VITALS: BP 185/96
--- NOTE | 2018-10-04 18:45 | Discharge Summary ---
Providers - Providers Date of Admission: 09/30/18 09:05 Date of discharge: 10/04/18 Attending physician: SARTHAK HOOD 09/30/18 08:08 Consult to Physician [CONS] Urgent Comment: Consulting Provider: BAYRON HICKS Physician Instructions: Reason For Exam: sbo [facility] [place] Hospitalization Reason for admission: small bowel obstruction Condition: Stable Hospital course: A/P: Small bowel obstruction. Surgery following. Conservative management . Started on clear liquid diet . KUB actually appears to be worse. Patient noncompliant and reports he ate a pack of cookies He has no complaints and he states that he is ready to go home He denies any abdominal pain nausea or vomiting ? Advanced to full liquids/ we will wait for follow-up by general surgery Large Ventral hernia.: No evidence of obstruction or incarceration Surgery following Hypertension. VS Reviewed reviewed Restart on amlodipine 5 mg Hold off on lisinopril and hydrochlorothiazide for now IV hydralazine when necessary Hyperlipidemia. Not on statin for review of her medications Morbid obesity. Likely secondary to excess calories Importance of diet and weight loss and long-term side effects of obesity explained to the patient Patient signed out AGAINST MEDICAL ADVICE Disposition: DC-07 LEFT AGAINST MED ADVICE Core Measure Documentation - Palliative Care Palliative Care/ Comfort Measures: Not Applicable - Core Measures Any of the following diagnoses?: none Exam - Constitutional Vitals: Temp Pulse Resp BP Pulse Ox 99.0 F 92 H 20 185/96 91 10/04/18 11:41 10/04/18 11:41 10/04/18 11:41 10/04/18 11:41 10/04/18 11:41 General appearance: Present: no acute distress - EENT Eyes: Present: PERRL, EOM intact ENT: hearing intact - Neck Neck: Present: supple - Respiratory Respiratory effort: normal Respiratory: bilateral: CTA - Cardiovascular Rhythm: regular Heart Sounds: Present: S1 & S2 - Extremities Extremities: No edema - Abdominal General gastrointestinal: Present: soft, non-tender, hernia (large ventral hernia) Plan Follow up with: ZACH SHOEMAKER MD [Primary Care Provider] - 3-5 Days
== END 2018-10-04 12:50 | disposition left against medical advice (07) | DRG 394 ==
LOC: ED 01:52 → 3A 09:05
PROVIDERS: ADMIT Hospitalist; ATTEND Internal Medicine
PROC: 0D9670Z Drainage of Stomach with Drainage Device, Via Natural or Artificial Opening (ICD-10-PCS; principal; 2018-09-30)
DX: K43.6 Other and unspecified ventral hernia with obstruction, without gangrene (principal); Z68.43 Body mass index [BMI] 50.0-59.9, adult; E78.5 Hyperlipidemia, unspecified; E66.01 Morbid (severe) obesity due to excess calories; I11.0 Hypertensive heart disease with heart failure; Z53.21 Procedure and treatment not carried out due to patient leaving prior to being seen by health care provider; I50.9 Heart failure, unspecified; Z90.49 Acquired absence of other specified parts of digestive tract; Z99.81 Dependence on supplemental oxygen
CPT/HCPCS: 36415; 71046; 74022; 74177; 80053; 81001; 82140; 83690; 84484; 85025; 85610; 85730; 87116; 93005; 93010; 94660; 96361; 96374; 96375; 96376; G0378; J0360; J1170; J2270; J2405; J7030; Q9967

== ENCOUNTER 2019-01-01 03:53 | Emergency (ER) | payer SELFPAY ==
[2019-01-01] MEDS ORDERED: ONDANSETRON 4 MG/2 ML INJ IV ONE (04:14)
[2019-01-01] MEDS ORDERED: HYDROmorphone 1 MG/1 ML INJ IV ONE (04:40)
--- NOTE | 2019-01-01 04:44 | Emergency Department Report ---
Blank Doc - Documentation Documentation: 58-year-old male presents to the hospital complaining of abd pain since yester day. Patient has history of ventral hernia and multiple abdominal surgeries. He thinks that his abdomen is more swollen today usual. Nausea without vomiting reported and last bowel movement was yesterday. As per pt's medical record review he was admitted here in the past for suspected bowel obstruction. Labs, CT with oral and IV contrast , Zofran, and Dilaudid for pain ordered pending on coming doctor evaluation and follow-up.
[2019-01-01 04:46] LABS: Basophils % (Auto) 0.3 % (0.0-1.8); Eosinophils # (Auto) 0.2 K/mm3 (0.0-0.4); Eosinophils % (Auto) 2.2 % (0.0-4.3); Hematocrit 39.5 % (35.5-45.6); Hemoglobin 13.1 gm/dl (11.8-15.2); Lymphocytes % (Auto) 42.3 % (13.4-35.0); Mean Corpuscular HGB Conc 33 % (32-34); Mean Corpuscular Volume 82 fl (84-94); Monocytes # (Auto) 1.2 K/mm3 (0.0-0.8); Monocytes % (Auto) 12.4 % (0.0-7.3); Platelet Count 323 K/mm3 (140-440); Red Blood Count 4.84 M/mm3 (3.65-5.03); Red Cell Distribution Width 15.8 % (13.2-15.2)
[2019-01-01 05:06] LABS: BUN/Creatinine Ratio 13; Blood Urea Nitrogen 15 mg/dL (9-20); Calcium 9.5 mg/dL (8.4-10.2)
[2019-01-01 05:07] LABS: Alanine Aminotransferase 14 units/L (7-56); Albumin 4.1 g/dL (3.9-5); Hemolysis Index 1
--- NOTE | 2019-01-01 06:13 | Cat Scan Report ---
CT ABDOMEN AND PELVIS WITH CONTRAST INDICATION: Mid abd pain hx of ventral hernia CONTRAST: Oral, 100 cc Omnipaque 300 IV COMPARISON: 09/30/[address] scans at this location are performed using CT dose reduction for ALARA by means of automated e xposure control. NOTE: Resolution is decreased and artifact is introduced by the patient's size. FINDINGS: Lung bases show mild atelectatic change. No pneumoperitoneum is seen. The multiple abdomina l wall midline and paramedian hernias are again noted containing multiple loops of small bowel. No si gnificant change is seen in the appearance of these hernias. On the right has its outermost portion not fully seen in the [id number]. Mild stranding in the are a of this hernia is not significantly changed and appear to be a chronic finding. Previously there wa s evidence of small bowel obstruction which is no longer seen. I do not see bowel dilatation. There a re some distended loops of small bowel with fluid but no wall thickening is seen. Gas and stool are s een throughout the colon. Appendix appears within normal limits. Bilateral renal cysts are again seen . No urinary obstructive changes are noted. Mild fatty infiltration of the liver with mild hepatomega ly are again seen. No other masses are noted. No lymphadenopathy is seen. No free fluid is noted. IMPRESSION: 1. No significant change in multiple abdominal wall hernia sacs containing multiple loops of small brandee wel 2. Resolution of prior small bowel obstruction. The small bowel pattern now is nonspecific with mild distention with fluid but without dilatation. Pattern possibly could relate to mild enteritis. Signer Name: Augustine Castro MD Signed: 01/01/2019 6:09 AM Workstation Name: [id number]
--- NOTE | 2019-01-01 06:16 | Emergency Department Report ---
ED Abdominal Pain HPI - General Chief Complaint: Abdominal Pain Stated Complaint: SOB,ABDOMINAL PAIN Time Seen by Provider: 01/01/19 06:14 Source: patient Mode of arrival: Ambulatory Limitations: No Limitations - History of Present Illness Initial Comments: This 58-year-old male who is screened by the prior emergency physician. The patient was concerned about his chronic ventral hernia. He complained of anterior abdominal pain. He was not vomiting. He stated "busted 2 years ago". He was admitted to this facility as below indicated in September 2018 and discharged without intervention. He is resting comfortably. He states "I feel good now". He also states he tolerated the oral contrast and oriented he drank some fluids well. He does not refer any fever or chills. Patient states he will be scheduled for hernia repair by Dr. Alejandra at [facility] soon. Hospitalization Reason for admission: small bowel obstruction Condition: Stable Hospital course: A/P: Small bowel obstruction. Surgery following. Conservative management . Started on clear liquid diet . KUB actually appears to be worse. Patient noncompliant and reports he ate a pack of cookies He has no complaints and he states that he is ready to go home He denies any abdominal pain nausea or vomiting ? Advanced to full liquids/ we will wait for follow-up by general surgery Large Ventral hernia.: No evidence of obstruction or incarceration Surgery following Hypertension. VS Reviewed reviewed Restart on amlodipine 5 mg Hold off on lisinopril and hydrochlorothiazide for now IV hydralazine when necessary Hyperlipidemia. Not on statin for review of her medications Morbid obesity. Likely secondary to excess calories Importance of diet and weight loss and long-term side effects of obesity explained to the patient Patient signed out AGAINST MEDICAL ADVICE Complaint: abdominal pain -: Gradual, hour(s) Location: diffuse (anterior) Radiation: none Migration to: no migration Severity: moderate Quality: aching Consistency: now resolved Improves With: nothing Worsens With: nothing Context: other (ventral hernia) Associated Symptoms: denies other symptoms - Related Data Home Medications Medication Instructions Recorded Confirmed Last Taken Amlodipine Besylate [Norvasc] 10 mg PO DAILY 10/01/18 10/01/18 09/30/18 08:00 Furosemide [Lasix TAB] 40 mg PO BID 10/01/18 10/01/18 09/29/18 22:00 Lisinopril [Zestril TAB] 20 mg PO DAILY 10/01/18 10/01/18 09/30/18 08:00 hydroCHLOROthiazide [HCTZ] 25 mg PO DAILY 10/01/18 10/01/18 09/30/18 08:00 Previous Rx's Medication Instructions Recorded Last Taken Type traMADol [Ultram 50 MG tab] 50 mg PO Q6HR PRN #7 tablet 01/01/19 Unknown Rx Allergies Allergy/AdvReac Type Severity Reaction Status Date / Time No Known Allergies Allergy Verified 09/30/18 06:55 ED Review of Systems ROS: Stated complaint: SOB,ABDOMINAL PAIN Other details as noted in HPI Constitutional: denies: chills, fever Eyes: denies: eye pain, eye discharge, vision change ENT: denies: ear pain, throat pain Respiratory: denies: cough, shortness of breath, wheezing Cardiovascular: denies: chest pain, palpitations Endocrine: no symptoms reported Gastrointestinal: abdominal pain. denies: nausea, diarrhea Genitourinary: denies: urgency, dysuria Musculoskeletal: denies: back pain, joint swelling, arthralgia Skin: denies: rash, lesions Neurological: denies: headache, weakness, paresthesias Psychiatric: denies: anxiety, depression Hematological/Lymphatic: denies: easy bleeding, easy bruising ED Past Medical Hx - Past Medical History Previous Medical History?: Yes Hx Hypertension: Yes Hx Congestive Heart Failure: Yes Hx Diabetes: No Hx Asthma: No Hx COPD: No Hx HIV: No Additional medical history: Sleep apnea - Surgical History Past Surgical History?: Yes Hx Cholecystectomy: Yes Additional Surgical History: hernia sx - Social History Smoking Status: Never Smoker Substance Use Type: None - Medications Home Medications: Home Medications Medication Instructions Recorded Confirmed Last Taken Type Amlodipine Besylate [Norvasc] 10 mg PO DAILY 10/01/18 10/01/18 09/30/18 08:00 History Furosemide [Lasix TAB] 40 mg PO BID 10/01/18 10/01/18 09/29/18 22:00 History Lisinopril [Zestril TAB] 20 mg PO DAILY 10/01/18 10/01/18 09/30/18 08:00 History hydroCHLOROthiazide [HCTZ] 25 mg PO DAILY 10/01/18 10/01/18 09/30/18 08:00 History traMADol [Ultram 50 MG tab] 50 mg PO Q6HR PRN #7 tablet 01/01/19 Unknown Rx ED Physical Exam - General Limitations: No Limitations General appearance: alert, in no apparent distress - Head Head exam: Present: atraumatic, normocephalic - Eye Eye exam: Present: normal appearance. Absent: scleral icterus - ENT ENT exam: Present: mucous membranes moist - Neck Neck exam: Present: normal inspection - Respiratory Respiratory exam: Present: normal lung sounds bilaterally. Absent: respiratory distress - Cardiovascular Cardiovascular Exam: Present: regular rate, normal rhythm. Absent: systolic murmur, diastolic murmur, rubs, gallop - GI/Abdominal GI/Abdominal exam: Present: soft, normal bowel sounds, hernia (ventral hernia present which is reducible), other. Absent: tenderness, guarding, rebound, rigid - Rectal Rectal exam: Present: deferred - Extremities Exam Extremities exam: Present: normal inspection - Back Exam Back exam: Present: normal inspection - Neurological Exam Neurological exam: Present: alert, oriented X3, CN II-XII intact. Absent: motor sensory deficit - Psychiatric Psychiatric exam: Present: normal affect, normal mood - Skin Skin exam: Present: warm, dry, intact, normal color. Absent: rash ED Course Vital Signs 01/01/19 01/01/19 04:00 04:33 Temperature 98.9 F 98.9 F Pulse Rate 82 85 Respiratory 20 16 Rate Blood Pressure 145/89 133/76 [Right] O2 Sat by Pulse 95 95 Oximetry - Reevaluation(s) Reevaluation #1: Patient is now appropriate for outpatient disposition. 01/01/19 06:31 ED Medical Decision Making - Lab Data Result diagrams: 01/01/19 04:18 01/01/19 04:18 Laboratory Results - last 24 hr 01/01/19 01/01/19 04:18 04:18 WBC 9.5 RBC 4.84 Hgb 13.1 Hct 39.5 MCV 82 L MCH 27 L MCHC 33 RDW 15.8 H Plt Count 323 Lymph % (Auto) 42.3 H [place] % (Auto) 12.4 H Eos % (Auto) 2.2 Baso % (Auto) 0.3 Lymph # 4.0 [place] # 1.2 H Eos # 0.2 Baso # 0.0 Seg Neutrophils % 42.8 Seg Neutrophils # 4.1 Sodium 139 Potassium 3.8 Chloride 98.1 Carbon Dioxide 29 Anion Gap 16 BUN 15 Creatinine 1.2 Estimated GFR > 60 BUN/Creatinine Ratio 13 Glucose 108 H Calcium 9.5 Total Bilirubin 0.20 AST 17 ALT 14 Alkaline Phosphatase 62 Total Protein 7.5 Albumin 4.1 Albumin/Globulin Ratio 1.2 Lipase 129 H - Radiology Data Radiology results: report reviewed, image reviewed IMPRESSION: 1. No significant change in multiple abdominal wall hernia sacs containing multiple loops of small bowel 2. Resolution of prior small bowel obstruction. The small bowel pattern now is nonspecific with mild distention with fluid but without dilatation. Pattern possibly could relate to mild enteritis. Critical care attestation.: If time is entered above; I have spent that time in minutes in the direct care of this critically ill patient, excluding procedure time. ED Disposition Clinical Impression: Ventral hernia Qualifiers: Obstruction and gangrene presence: without obstruction or gangrene Qualified Code(s): K43.9 - Ventral hernia without obstruction or gangrene Abdominal pain Qualifiers: Abdominal location: upper abdomen, unspecified Qualified Code(s): R10.10 - Upper abdominal pain, unspecified Disposition: DC-01 TO HOME OR SELFCARE Is pt being admited?: No Does the pt Need Aspirin: No Condition: Stable Instructions: Acute Abdominal Pain (ED), Abdominal Pain (ED), Ventral Hernia (ED) Additional Instructions: Return as needed any significant pain, fever, chills, nausea, vomiting. Follow up with her surgeon as planned. Use your CPAP machine. Prescriptions: traMADol [Ultram 50 MG tab] 50 mg PO Q6HR PRN #7 tablet PRN Reason: Pain Referrals: usual, surgeon [Other] - 2-3 Days Time of Disposition: 06:33
[2019-01-01 06:44] VITALS: BP 143/86
== END 2019-01-01 06:51 | disposition home or self-care (01) ==
LOC: ED 03:53
DX: K43.9 Ventral hernia without obstruction or gangrene (principal)
CPT/HCPCS: 36415; 74177; 80053; 83690; 85025; 96374; 96375; 99284; J1170; J2405; Q9967

== ENCOUNTER 2019-07-11 14:35 | Inpatient (IN) | payer SELFPAY ==
[2019-07-11] MEDS ORDERED: ONDANSETRON 4 MG/2 ML INJ IV ONE (15:22)
[2019-07-11] MEDS ORDERED: fentaNYL 100 MCG/2 ML INJ IV ONE (15:22)
--- NOTE | 2019-07-11 15:32 | Emergency Department Report ---
HPI - General Chief Complaint: Abdominal Pain Time Seen by Provider: 07/11/19 15:11 - HPI HPI: Room 23 The patient is a 59-year-old male present with a chief complaint of abdominal pain. The patient states he came to the emergency department because of his "hernia." Patient states he has pain on both sides of his abdomen associated with nausea vomiting since yesterday. Patient states his last bowel movement occurred 30 to 40 minutes ago and was watery in nature. Patient denies history of fever, cough rhinorrhea or known sick contacts. Patient admits to chronic shortness of breath because he is "out of shape." ED Past Medical Hx - Past Medical History Previous Medical History?: Yes Hx Hypertension: Yes Hx Congestive Heart Failure: Yes Additional medical history: Sleep apnea - Surgical History Past Surgical History?: Yes Hx Cholecystectomy: Yes Additional Surgical History: hernia sx - Family History Family history: no significant - Social History Smoking Status: Former Smoker (None x4 years) Substance Use Type: None (Denies illicit drug use) - Medications Home Medications: Home Medications Medication Instructions Recorded Confirmed Last Taken Type Amlodipine Besylate [Norvasc] 10 mg PO DAILY 10/01/18 07/11/19 09/30/18 08:00 History Furosemide [Lasix TAB] 40 mg PO BID 10/01/18 07/11/19 09/29/18 22:00 History hydroCHLOROthiazide [HCTZ] 25 mg PO DAILY 10/01/18 07/11/19 09/30/18 08:00 History lisinopriL [Zestril TAB] 20 mg PO DAILY 10/01/18 07/11/19 09/30/18 08:00 History traMADoL [Ultram 50 MG tab] 50 mg PO Q6HR PRN #7 tablet 01/01/19 07/11/19 Unknown Rx ED Review of Systems ROS: Stated complaint: NAUSEA VOMITING Other details as noted in HPI Constitutional: denies: fever Eyes: denies: eye pain ENT: denies: throat pain Respiratory: shortness of breath. denies: cough Cardiovascular: denies: chest pain Endocrine: no symptoms reported Gastrointestinal: abdominal pain, nausea, vomiting, diarrhea Genitourinary: denies: dysuria Musculoskeletal: denies: back pain Neurological: denies: headache Physical Exam - Physical Exam Vital Signs: Vital Signs 07/11/19 14:50 Temperature 97.6 F Pulse Rate 89 Respiratory 22 Rate Blood Pressure 150/90 O2 Sat by Pulse 91 Oximetry Physical Exam: GENERAL: The patient is well-developed well-nourished male sitting on stretcher not appearing to be in acute distress. Patient holding empty emesis bag HEENT: Normocephalic. Atraumatic. Extraocular motions are intact. Patient has moist mucous membranes. NECK: Supple. Trachea midline CHEST/LUNGS: Clear to auscultation. There is no respiratory distress noted. HEART/CARDIOVASCULAR: Regular. There is no tachycardia. There is no gallop rub or murmur. ABDOMEN: Abdomen is soft, with diffuse discomfort to palpation. Patient has normal bowel sounds. There is no abdominal distention. SKIN: There is no rash. There is no edema. There is no diaphoresis. NEURO: The patient is awake, alert, and oriented. The patient is cooperative. The patient has normal speech MUSCULOSKELETAL: There is no evidence of acute injury. ED Course Vital Signs 07/11/19 14:50 Temperature 97.6 F Pulse Rate 89 Respiratory 22 Rate Blood Pressure 150/90 O2 Sat by Pulse 91 Oximetry - Consultations Consultation #1: 07/11/19 19:10 Surgery paged 07/11/19 19:[address] Bryan-request cardiology brought on board to assess patient's preoperative candidacy. 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 Peñaloza ED Medical Decision Making - Lab Data Result diagrams: 07/11/19 15:23 07/11/19 15:23 Laboratory Tests 07/11/19 07/11/19 07/11/19 15:23 15:23 16:00 WBC 11.4 H RBC 5.79 H Hgb 15.0 Hct 47.9 H MCV 83 L MCH 26 L MCHC 31 L RDW 16.6 H Plt Count 391 ABG pH 7.401 ABG pCO2 47.3 ABG pO2 64.0 L ABG HCO3 28.7 H ABG O2 Saturation 93.5 L ABG O2 Content 19.2 ABG Base Excess 3.1 H ABG Hemoglobin 15.1 ABG Carboxyhemoglobin 2.5 ABG Methemoglobin 0.7 Oxyhemoglobin 90.5 L FiO2 21 Sodium 142 Potassium 4.1 Chloride 99.9 Carbon Dioxide 30 Anion Gap 16 BUN 11 Creatinine 1.1 Estimated GFR > 60 BUN/Creatinine Ratio 10 Glucose 123 H Calcium 9.9 Total Bilirubin 0.50 AST 18 ALT 20 Alkaline Phosphatase 91 Troponin T < 0.010 NT-Pro-B Natriuret Pep 66.65 Total Protein 8.4 H Albumin 4.4 Albumin/Globulin Ratio 1.1 Lipase 19 Urine Color Urine Turbidity Urine pH Ur Specific [place] Urine Protein Urine Glucose (UA) Urine Ketones Urine Blood Urine Nitrite Urine Bilirubin Urine Urobilinogen Ur Leukocyte Esterase Urine WBC (Auto) Urine RBC (Auto) Urine Bacteria (Auto) Urine Mucus Urine Yeast (Budding) 07/11/19 Unknown WBC RBC Hgb Hct MCV MCH MCHC RDW Plt Count ABG pH ABG pCO2 ABG pO2 ABG HCO3 ABG O2 Saturation ABG O2 Content ABG Base Excess ABG Hemoglobin ABG Carboxyhemoglobin ABG Methemoglobin Oxyhemoglobin FiO2 Sodium Potassium Chloride Carbon Dioxide Anion Gap BUN Creatinine Estimated GFR BUN/Creatinine Ratio Glucose Calcium Total Bilirubin AST ALT Alkaline Phosphatase Troponin T NT-Pro-B Natriuret Pep Total Protein Albumin Albumin/Globulin Ratio Lipase Urine Color Yellow Urine Turbidity Turbid Urine pH 5.0 Ur Specific [place] 1.032 H Urine Protein 100 mg/dl Urine Glucose (UA) Neg Urine Ketones Neg Urine Blood Sm Urine Nitrite Neg Urine Bilirubin Neg Urine Urobilinogen < 2.0 Ur Leukocyte Esterase Neg Urine WBC (Auto) 113.0 H Urine RBC (Auto) 21.0 Urine Bacteria (Auto) 4+ Urine Mucus 3+ Urine Yeast (Budding) 3+ - EKG Data -: EKG Interpreted by Or EKG shows normal: sinus rhythm Rate: normal - EKG Data When compared to previous EKG there are: previous EKG unavailable Interpretation: other (No ischemic changes seen) - Radiology Data Radiology results: report reviewed (CT chest, CT abdomen pelvis), image reviewed (CT chest, CT abdomen pelvis) Findings [facility] [address] [place] [address] Cat Scan Report Signed Patient: JENNA GUERRERO MR#: [id number] : 1960 Acct:[id number] Age/Sex: 59 / M ADM Date: 07/11/19 Loc: ED Attending Dr: Ordering Physician: ZACH HUFF MD Date of Service: 07/11/19 Procedure(s): CT angio chest Accession Number(s): [id number] cc: ZACH HUFF MD CTA chest with c ontrast CT abdomen and pelvis with contrast INDICATION : Hypoxia. Acute generalized abdominal pain and vomiting TECHNIQUE: Axial imaging performed through the chest, with contrast bolus timing set to maximize opacification of the pulmonary arteries. 3-plane MIP reformatted images were obtained. Axial imaging was also performed through the abdomen and pelvis. All CT scans at this location are performed using CT dose reduction for ALARA by means of automated exposure control. 100 mL of intravenous contrast administered. COMPARISON: CT abdomen from 01/01/2019 FINDINGS: CHEST: Bolus: Contrast bolus timing is adequate; however, there is severe respiratory motion artifact in the lung bases which essentially yields this portion of the exam nondiagnostic. PTE: No filling defect is present to suggest PTE in the mid to upper lung zones. Again, the lung bases are not adequately evaluated on this exam. Mediastinum: Heart and great vessels appear normal. No pathologic mediastinal adenopathy. Lungs: Significant motion artifact is present in the lung bases, with no gross acute abnormality identified. Moderate emphysematous changes are present. Bones: Degenerative changes in the spine with nothing acute. ABDOMEN/PELVIS: The liver, spleen, pancreas, and right kidney appear unremarkable. There is mild bilateral adrenal thickening. Simple cysts are again seen within the kidneys. There is an irreg ular ventral wall hernia containing multiple loops of bowel. The small bowel leading up to this area is abnormally dilated and fluid-filled consistent with obstruction. There is mild inflammation involving a portion of the bowel in the midline hernia. No significant pelvic free fluid. Bladder is mostly collapsed. Prostate is normal in size. No acute colonic abnormality identified. The appendix is normal. IMPRESSION: 1. Negative for PTE in the mid to upper lung zones. The lung bases are not adequately evaluated because of severe motion as described. 2. Recurrent small bowel obstruction tracking to an irregular ventral wall hernia. Signer Name: Mg Faith MD Signed: 07/11/2019 7:00 PM Works tation Name: [id number] Transcribed By: WENCESLAO Dictated By: Mg Faith MD Electronically Authenticated By: Mg Faith MD Signed Date/Time: 07/11/19 190 DD/ 48 TD/TT: - Differential Diagnosis Partial small bowel obstruction, gastroenteritis, Critical care attestation.: If time is entered above; I have spent that time in minutes in the direct care of this critically ill patient, excluding procedure time. ED Disposition Clinical Impression: SBO (small bowel obstruction), Ventral hernia, Hypoxia Disposition: OP ADMIT IP TO THIS HOSP Is pt being admited?: Yes Does the pt Need Aspirin: No Condition: Fair Referrals: PRIMARY CARE,MD [Primary Care Provider] - 3-5 Days Time of Disposition: 19:44 (Hospitalist Paged (Dr Rowland))
[2019-07-11 16:00] LABS: Alanine Aminotransferase 20 units/L (7-56); Albumin 4.4 g/dL (3.9-5); BUN/Creatinine Ratio 10; Blood Urea Nitrogen 11 mg/dL (9-20); Calcium 9.9 mg/dL (8.4-10.2); Hemolysis Index 6
[2019-07-11 16:03] LABS: Hematocrit 47.9 % (35.5-45.6); Mean Corpuscular HGB Conc 31 % (32-34); Mean Corpuscular Volume 83 fl (84-94); Platelet Count 391 K/mm3 (140-440); Red Blood Count 5.79 M/mm3 (3.65-5.03); Red Cell Distribution Width 16.6 % (13.2-15.2)
[2019-07-11 16:07] LABS: ABG Base Excess 3.1 mmol/L (-2.0-3.0); ABG HCO3 28.7 mmol/L (20.0-26.0); ABG Methemoglobin 0.7 % (0.0-1.5); ABG Oxygen Saturation 93.5 % (95.0-99.0); ABG PCO2 47.3 mm Hg; ABG PH 7.401 pH Units (7.350-7.450)
--- NOTE | 2019-07-11 16:39 | XRay Report ---
CHEST 1 VIEW 07/11/2019 3:33 PM INDICATION / CLINICAL INFORMATION: Shortness of breath. COMPARISON: 2 views of the chest from 09/30/2018. FINDINGS: SUPPORT DEVICES: None. HEART / MEDIASTINUM: No significant abnormality. LUNGS / PLEURA: Low lung volumes are seen with probable hypoventilatory changes. The upper lungs are clear. No significant pleural effusion. No pneumothorax. ADDITIONAL FINDINGS: No significant additional findings. IMPRESSION: 1. No acute abnormality of the chest. 2. Additional findings as above. Signer Name: Dakota Montoya MD Signed: 07/11/2019 4:35 PM Workstation Name: [id number]
[2019-07-11] MEDS ORDERED: HYDROmorphone 1 MG/1 ML INJ IV ONE (17:34)
[2019-07-11 17:57] LABS: Bacteria,Urine 4+ /HPF (Negative); Bilirubin,Urine NEG (Negative); Blood,Urine SM (Negative); Color,Urine Yellow (Yellow); Mucus,Urine 3+ /HPF; Urobilinogen,Urine < 2.0 mg/dL (<2.0)
--- NOTE | 2019-07-11 19:04 | Cat Scan Report ---
CTA chest with contrast CT abdomen and pelvis with contrast INDICATION : Hypoxia. Acute generalized abdominal pain and vomiting TECHNIQUE: Axial imaging performed through the chest, with contrast bolus timing set to maximize opa cification of the pulmonary arteries. 3-plane MIP reformatted images were obtained. Axial imaging was also performed through the abdomen and pelvis. All CT scans at this location are performed using CT dose reduction for ALARA by means of automated exposure control. 100 mL of intravenous contrast administered. COMPARISON: CT abdomen from 01/01/2019 FINDINGS: CHEST: Bolus: Contrast bolus timing is adequate; however, there is severe respiratory motion artifact in th e lung bases which essentially yields this portion of the exam nondiagnostic. PTE: No filling defect is present to suggest PTE in the mid to upper lung zones. Again, the lung bas es are not adequately evaluated on this exam. Mediastinum: Heart and great vessels appear normal. No pathologic mediastinal adenopathy. Lungs: Significant motion artifact is present in the lung bases, with no gross acute abnormality juan ntified. Moderate emphysematous changes are present. Bones: Degenerative changes in the spine with nothing acute. ABDOMEN/PELVIS: The liver, spleen, pancreas, and right kidney appear unremarkable. There is mild bilateral adrenal th ickening. Simple cysts are again seen within the kidneys. There is an irregular ventral wall hernia containing multiple loops of bowel. The small bowel leading up to this area is abnormally dilated and fluid-filled consistent with obstruction. There is mild in flammation involving a portion of the bowel in the midline hernia. No significant pelvic free fluid. Bladder is mostly collapsed. Prostate is normal in size. No acute c olonic abnormality identified. The appendix is normal. IMPRESSION: 1. Negative for PTE in the mid to upper lung zones. The lung bases are not adequately evaluated becau se of severe motion as described. 2. Recurrent small bowel obstruction tracking to an irregular ventral wall hernia. Signer Name: Mg Faith MD Signed: 07/11/2019 7:00 PM Workstation Name: [id number]
--- NOTE | 2019-07-11 20:24 | History and Physical Report ---
History of Present Illness Chief complaint: My stomach hurts History of present illness: 59 YO Male with Obesity Hypoventilation Syndrome, HTN, Systolic CHF, SERGIO on CPAP presents to ED for evaluation. Patient states that he has experienced pain in his abdomen over the past 1 day with progressively worsening symptoms over the same timeframe. Patient states that his pain is 7/10, constant, worsened with movement, relieved somewhat with rest. Patient acknowledges nausea and multiple episodes of vomiting over the past 1 day. Patient states that his last bowel movement was approximately 1 hour prior to presentation. EMS was notified and upon arrival the patient was found to be in distress and subsequently iqbal sported to [facility] for further care and evaluation. Patient seen and evaluated in the emergency department. Lab and imaging studies reviewed. Patient found to have a pulse oximetry of 87% on room air which is consistent with acute hypoxemic respiratory failure. The patient was placed on supplemental oxygen without significant improvement. Patient was then placed on noninvasive positive pressure ventilation with improvement of pulse oximetry. Patient underwent a CT scan of the abdomen and pelvis which revealed a partial bowel obstruction. Patient also found to have urinary tract infection, as well as obesity hypoventilation syndrome. Patient placed on noninvasive positive pressure ventilation in the emergency department. Surgical team consulted in ED. Cardiology consulted in ED for preoperative cardiac risk assessment. Patient admitted to surgical floor. Patient denies fever, chills, chest pain, palpitations, productive cough, bright red blood per rectum, hematemesis, skin rash, known ill contacts, known exposure to COVID-19. No prior admission for review. All medication listed at time of admission have been reconciled. Past History Past Medical History: heart failure, hypertension, other (See HPI) Past Surgical History: hernia repair Social history: . denies: smoking, alcohol abuse, prescription drug abuse Family history: diabetes, hypertension Medications and Allergies Allergies Allergy/AdvReac Type Severity Reaction Status Date / Time No Known Allergies Allergy Verified 09/30/18 06:55 Home Medications Medication Instructions Recorded Confirmed Last Taken Type Amlodipine Besylate [Norvasc] 10 mg PO DAILY 10/01/18 07/11/19 09/30/18 08:00 History Furosemide [Lasix TAB] 40 mg PO BID 10/01/18 07/11/19 09/29/18 22:00 History hydroCHLOROthiazide [HCTZ] 25 mg PO DAILY 10/01/18 07/11/19 09/30/18 08:00 History lisinopriL [Zestril TAB] 20 mg PO DAILY 10/01/18 07/11/19 09/30/18 08:00 History traMADoL [Ultram 50 MG tab] 50 mg PO Q6HR PRN #7 tablet 01/01/19 07/11/19 Unknown Rx Review of Systems Constitutional: no weight loss, no weight gain, no fever, no chills Ears, nose, mouth and throat: no ear pain, no ear discharge, no tinnitis Cardiovascular: no chest pain, no orthopnea, no palpitations, no rapid/irregular heart beat Respiratory: no cough, no cough with sputum, no hemoptysis, no shortness of breath Gastrointestinal: abdominal pain, nausea, vomiting, early satiety, no change in bowel habits, no hematemesis, no loss of appetite Genitourinary Male: no hematuria, no flank pain, no discharge, no urinary frequency, no urinary hesitancy Rectal: no pain, no incontinence, no bleeding Musculoskeletal: no neck stiffness, no neck pain, no arm numbness/tingling, no leg numbness/tingling Integumentary: no rash, no pruritis, no redness, no sores, no jaundice, no boils Neurological: no transient paralysis, no paralysis, no weakness, no parathesias, no numbness, no tingling, no seizures Psychiatric: no anxiety, no memory loss, no change in sleep habits, no sleep disturbances, no insomnia, no hypersomnia, no change in appetite Endocrine: no cold intolerance, no heat intolerance, no polyphagia, no excessive thirst, no polydipsia, no polyuria Hematologic/Lymphatic: no easy bruising, no easy bleeding, no lymphadenopathy, no lymphedema Allergic/Immunologic: no urticaria, no allergic rhinitis, no persistent infections, no anaphylaxis, no angioedema Exam - Constitutional Vitals: Temp Pulse Resp BP Pulse Ox 97.6 F 86 20 178/110 96 07/11/19 14:50 07/11/19 16:20 07/11/19 16:33 07/11/19 16:20 07/11/19 20:06 General appearance: Present: mild distress, obese - EENT Eyes: Present: PERRL ENT: hearing intact, clear oral mucosa - Neck Neck: Present: supple, normal ROM - Respiratory Respiratory effort: normal Respiratory: bilateral: CTA - Cardiovascular Heart Sounds: Present: S1 & S2. Absent: rub, click - Extremities Extremities: pulses symmetrical, No edema Peripheral Pulses: within normal limits - Abdominal General gastrointestinal: Present: soft, tender, normal bowel sounds, hernia Male genitourinary: Present: normal - Integumentary Integumentary: Present: clear, warm, dry - Musculoskeletal Musculoskeletal: generalized weakness - Psychiatric Psychiatric: appropriate mood/affect, intact judgment & insight - Neurologic Neurologic: CNII-XII intact, moves all extremities Results - Labs CBC & Chem 7: 07/11/19 15:23 07/11/19 15:23 Labs: Abnormal lab results 07/11/19 07/11/19 07/11/19 Range/Units 15: 15: 16:00 WBC 11.4 H (4.5-11.0) K/mm3 RBC 5.79 H (3.65-5.03) M/mm3 Hct 47.9 H (35.5-45.6) % MCV 83 L (84-94) fl MCH 26 L (28-32) pg MCHC 31 L (32-34) % RDW 16.6 H (13.2-15.2) % ABG pO2 64.0 L (80.0-90.0) mm Hg ABG HCO3 28.7 H (20.0-26.0) mmol/L ABG O2 Saturation 93.5 L (95.0-99.0) % ABG Base Excess 3.1 H (-2.0-3.0) mmol/L Oxyhemoglobin 90.5 L (95.0-99.0) % Glucose 123 H (75-100) mg/dL Total Protein 8.4 H (6.3-8.2) g/dL Ur Specific [place] (1.003-1.030) Urine WBC (Auto) (0.0-6.0) /HPF 07/11/19 Range/Units Unknown WBC (4.5-11.0) K/mm3 RBC (3.65-5.03) M/mm3 Hct (35.5-45.6) % MCV (84-94) fl MCH (28-32) pg MCHC (32-34) % RDW (13.2-15.2) % ABG pO2 (80.0-90.0) mm Hg ABG HCO3 (20.0-26.0) mmol/L ABG O2 Saturation (95.0-99.0) % ABG Base Excess (-2.0-3.0) mmol/L Oxyhemoglobin (95.0-99.0) % Glucose (75-100) mg/dL Total Protein (6.3-8.2) g/dL Ur Specific [place] 1.032 H (1.003-1.030) Urine WBC (Auto) 113.0 H (0.0-6.0) /HPF Assessment and Plan - Patient Problems (1) Acute hypoxemic respiratory failure Current Visit: Yes Status: Acute Plan to address problem: Supplemental oxygen, nebulizer therapy, CTA of the chest, chest x-ray, pulse oximetry, noninvasive positive pressure ventilation. (2) SBO (small bowel obstruction) Current Visit: Yes Status: Acute Plan to address problem: Surgery team consulted, CT abdomen and pelvis, serial abdominal exam, bowel rest, supportive care intervention as per surgical team. (3) Obesity hypoventilation syndrome Current Visit: Yes Status: Acute Plan to address problem: Submental oxygen, noninvasive positive pressure ventilation nightly, supportive care. (4) UTI (urinary tract infection) Current Visit: Yes Status: Acute Qualifiers: Encounter type: initial encounter Plan to address problem: CBC, urinalysis, IV antibiotic therapy. (5) Morbid obesity with BMI of 50.0-59.9, adult Current Visit: Yes Status: Acute Plan to address problem: Balanced diet, increase physical activity at discharge, outpatient bariatric surgery follow-up. (6) DVT prophylaxis Current Visit: Yes Status: Acute Plan to address problem: SCD to bilateral lower extremities while in bed, prophylactic heparin
[2019-07-11] MEDS ORDERED: ACETAMINOPHEN 325 MG TAB PO PRN (20:29)
[2019-07-11] MEDS ORDERED: ONDANSETRON 4 MG/2 ML INJ IV PRN (20:29)
[2019-07-11] MEDS ORDERED: oxyCODONE /ACETAMINOPHEN 5-325MG TAB PO PRN (20:29)
[2019-07-11] MEDS ORDERED: traMADol 50 MG TAB PO PRN (20:30)
[2019-07-11] MEDS: HEPARIN 5,000 UNIT/1 ML VIAL SUB-Q SCH (22:26)
[2019-07-12 05:50] LABS: Basophils # (Auto) 0.1 K/mm3 (0.0-0.1); Basophils % (Auto) 0.7 % (0.0-1.8); Eosinophils # (Auto) 0.1 K/mm3 (0.0-0.4); Eosinophils % (Auto) 1.4 % (0.0-4.3); Hematocrit 42.5 % (35.5-45.6); Hemoglobin 13.8 gm/dl (11.8-15.2); Lymphocytes # (Auto) 2.2 K/mm3 (1.2-5.4); Mean Corpuscular HGB Conc 33 % (32-34); Mean Corpuscular Volume 83 fl (84-94); Monocytes # (Auto) 1.1 K/mm3 (0.0-0.8); Monocytes % (Auto) 11.5 % (0.0-7.3); Platelet Count 318 K/mm3 (140-440); Red Cell Distribution Width 16.7 % (13.2-15.2)
[2019-07-12] MEDS ORDERED: FUROSEMIDE 40 MG/4 ML INJ IV SCH (06:00)
[2019-07-12 06:07] LABS: BUN/Creatinine Ratio 11; Blood Urea Nitrogen 11 mg/dL (9-20); Hemolysis Index 41
--- NOTE | 2019-07-12 08:53 | Consultation ---
History of Present Illness Consult date: 07/12/19 Reason for consult: abdominal pain Requesting physician: ZACH HUFF Chief complaint: abdominal pain - History of present illness History of present illness: 59yo M with multiple medical problems presents with acute onset of abdominal pain to the emergency department. Patient was found to have a symptomatic ventral hernia based on CT scan. General surgery was asked to evaluate and manage. Patient has had a long history of abdominal wall hernias. In 2013 he had his first abdominal wall hernia repair at [facility]. In 2014, the hernia recurred. Plans were being made for repair of the recurrence but in 2016 he had a "rupture" of that hernia. This required emergency surgery for which she had an exploratory laparotomy. The hernia came back in 2017. He was scheduled for another repair in March 2019. On the day of surgery, he decided not to go forward with surgery after the anesthesiologist told him that they may not be able to "wake him up". That scared him and he canceled the surgery. Yesterday, he had a sudden onset of abdominal pain associated with nausea and vomiting. This has happened before and if he stops eating and allows his body to rest, it usually goes away. He has had NG tube before and they generally fall out. He refused the NG tube last night. He reports that his pain has subsided. Denies any nausea or vomiting. Would like to try eating. He has been passing flatus during the night. 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 denies: smoking, alcohol abuse, prescription drug abuse Family history: diabetes, hypertension Medications and Allergies Allergies Allergy/AdvReac Type Severity Reaction Status Date / Time No Known Allergies Allergy Verified 09/30/18 06:55 Home Medications Medication Instructions Recorded Confirmed Last Taken Type Amlodipine Besylate [Norvasc] 10 mg PO DAILY 10/01/18 07/11/19 09/30/18 08:00 History Furosemide [Lasix TAB] 40 mg PO BID 10/01/18 07/11/19 09/29/18 22:00 History hydroCHLOROthiazide [HCTZ] 25 mg PO DAILY 10/01/18 07/11/19 09/30/18 08:00 Hist ory lisinopriL [Zestril TAB] 20 mg PO DAILY 10/01/18 07/11/19 09/30/18 08:00 History traMADoL [Ultram 50 MG tab] 50 mg PO Q6HR PRN #7 tablet 01/01/19 07/11/19 Unknown Rx Active Meds: Active Medications Acetaminophen (Tylenol) 650 mg PO Q4H PRN PRN Reason: Pain MILD(1-3)/Fever >100.5/GU Amlodipine Besylate (Amlodipine) 10 mg PO DAILY [facility] Furosemide (Lasix) 40 mg IV 0600,1800 [facility] Last Admin: 07/12/19 05:45 Dose: 40 mg Documented by: Heparin Sodium (Porcine) (Heparin) 5,000 unit SUB-Q Q12HR [facility] Last Admin: 07/11/19 22:26 Dose: 5,000 unit Documented by: Hydrochlorothiazide (Hctz) 25 mg PO DAILY [facility] Ceftriaxone Sodium (Rocephin/Ns 1 Gm/50 Ml) 1 gm in 50 mls @ 100 mls/hr IV Q24HR [facility]; Protocol Lisinopril (Zestril) 20 mg PO DAILY [facility] Ondansetron HCl (Zofran) 4 mg IV Q8H PRN PRN Reason: Nausea And Vomiting Oxycodone/Acetaminophen (Percocet 5/325) 1 tab PO Q6H PRN PRN Reason: Pain, Moderate (4-6) Last Admin: 07/12/19 05:45 Dose: 1 tab Documented by: Sodium Chloride (Sodium Chloride Flush Syringe 10 Ml) 10 ml IV BID [facility] Last Admin: 07/11/19 22:26 Dose: 10 ml Documented by: Sodium Chloride (Sodium Chloride Flush Syringe 10 Ml) 10 ml IV PRN PRN PRN Reason: LINE FLUSH Tramadol HCl (Ultram) 50 mg PO Q6H PRN PRN Reason: PAIN BREAKTHROUGH Review of Systems - Constitutional fatigue, no fever, no chills, no chronic pain - Cardiovascular dyspnea on exertion, no chest pain - Respiratory sleep apnea, no cough - Gastrointestinal abdominal pain, nausea, vomiting - Genitourinary no dysuria - Muskuloskeletal no low back pain - Integumentary no rash, no pruritis, no wounds Exam Vital Signs Temp Pulse Resp BP Pulse Ox 97.6 F 89 22 150/90 91 07/11/19 14:50 07/11/19 14:50 07/11/19 14:50 07/11/19 14:50 07/11/19 14:50 - General physical appearance Positive: no distress, no pain, obese (Morbid), other (Pleasant) - Eyes Positive: normal occular movement - Respiratory Positive: normal expansion, normal respiratory effort, clear to auscultation - Cardiovascular Rhythm: regular - Abdomen Abdomen: Present: soft, bowel sounds normal, surgical scars (Multiple well- healed scars.). Absent: tender, guarding, rigid Hernia: incisional (Patient has multiple areas of swelling on the abdominal wall. The main area near the umbilicus is reducible. He has no tenderness at any of the areas of swelling.), reducible - Integumentary no rash, no growths, no abnormal pigmentation - Neurologic Neurologic: alert and oriented to time, place and person, motor strength and sensation are grossly intact - Psychiatric Psychiatric: appropriate mood/affect, intact judgment & insight, cooperative Results - Labs 07/12/19 04:49 07/12/19 04:49 Abnormal lab results 07/11/19 07/11/19 07/11/19 Range/Units 15:23 15:23 16:00 WBC 11.4 H (4.5-11.0) K/mm3 RBC 5.79 H (3.65-5.03) M/mm3 Hct 47.9 H (35.5-45.6) % MCV 83 L (84-94) fl MCH 26 L (28-32) pg MCHC 31 L (32-34) % RDW 16.6 H (13.2-15.2) % [place] % (Auto) (0.0-7.3) % [place] # (0.0-0.8) K/mm3 ABG pO2 64.0 L (80.0-90.0) mm Hg ABG HCO3 28.7 H (20.0-26.0) mmol/L ABG O2 Saturation 93.5 L (95.0-99.0) % ABG Base Excess 3.1 H (-2.0-3.0) mmol/L Oxyhemoglobin 90.5 L (95.0-99.0) % Carbon Dioxide (22-30) mmol/L Glucose 123 H (75-100) mg/dL Total Protein 8.4 H (6.3-8.2) g/dL Ur Specific [place] (1.003-1.030) Urine WBC (Auto) (0.0-6.0) /HPF 07/11/19 07/12/19 07/12/19 Range/Units Unknown 04:49 04:49 WBC (4.5-11.0) K/mm3 RBC 5.10 H (3.65-5.03) M/mm3 Hct (35.5-45.6) % MCV 83 L (84-94) fl MCH 27 L (28-32) pg MCHC (32-34) % RDW 16.7 H (13.2-15.2) % [place] % (Auto) 11.5 H (0.0-7.3) % [place] # 1.1 H (0.0-0.8) K/mm3 ABG pO2 (80.0-90.0) mm Hg ABG HCO3 (20.0-26.0) mmol/L ABG O2 Saturation (95.0-99.0) % ABG Base Excess (-2.0-3.0) mmol/L Oxyhemoglobin (95.0-99.0) % Carbon Dioxide 32 H (22-30) mmol/L Glucose (75-100) mg/dL Total Protein (6.3-8.2) g/dL Ur Specific [place] 1.032 H (1.003-1.030) Urine WBC (Auto) 113.0 H (0.0-6.0) /HPF Diabetes panel 07/11/19 07/12/19 Range/Units 15:23 04:49 Sodium 142 142 (137-145) mmol/L Potassium 4.1 3.7 (3.6-5.0) mmol/L Chloride 99.9 100.3 (98-107) mmol/L Carbon Dioxide 30 32 H (22-30) mmol/L BUN 11 11 (9-20) mg/dL Creatinine 1.1 1.0 (0.8-1.5) mg/dL Glucose 123 H 99 (75-100) mg/dL Calcium 9.9 9.0 (8.4-10.2) mg/dL AST 18 (5-40) units/L ALT 20 (7-56) units/L Alkaline Phosphatase 91 (35-129) units/L Total Protein 8.4 H (6.3-8.2) g/dL Albumin 4.4 (3.9-5) g/dL Calcium panel 07/11/19 07/12/19 Range/Units 15:23 04:49 Calcium 9.9 9.0 (8.4-10.2) mg/dL Albumin 4.4 (3.9-5) g/dL Pituitary panel 07/11/19 07/12/19 Range/Units 15:23 04:49 Sodium 142 142 (137-145) mmol/L Potassium 4.1 3.7 (3.6-5.0) mmol/L Chloride 99.9 100.3 (98-107) mmol/L Carbon Dioxide 30 32 H (22-30) mmol/L BUN 11 11 (9-20) mg/dL Creatinine 1.1 1.0 (0.8-1.5) mg/dL Glucose 123 H 99 (75-100) mg/dL Calcium 9.9 9.0 (8.4-10.2) mg/dL Adrenal panel 07/11/19 07/12/19 Range/Units 15:23 04:49 Sodium 142 142 (137-145) mmol/L Potassium 4.1 3.7 (3.6-5.0) mmol/L Chloride 99.9 100.3 (98-107) mmol/L Carbon Dioxide 30 32 H (22-30) mmol/L BUN 11 11 (9-20) mg/dL Creatinine 1.1 1.0 (0.8-1.5) mg/dL Glucose 123 H 99 (75-100) mg/dL Calcium 9.9 9.0 (8.4-10.2) mg/dL Total Bilirubin 0.50 (0.1-1.2) mg/dL AST 18 (5-40) units/L ALT 20 (7-56) units/L Alkaline Phosphatase 91 (35-129) units/L Total Protein 8.4 H (6.3-8.2) g/dL Albumin 4.4 (3.9-5) g/dL - Imaging CT scan - abdomen: report reviewed, image reviewed CT scan - pelvis: report reviewed, image reviewed Assessment and Plan - Patient Problems (1) Incisional hernia without mention of obstruction or gangrene Current Visit: Yes Status: Acute Plan to address problem: Patient stable. Patient with an incisional abdominal wall hernia with multiple recurrences. Appears as though the small bowel has spontaneously reduced enough such that his symptoms have resolved. He feels back to normal. This is what has occurred in the past for him. He would like to try diet today. There is no urgent indication for surgery at this moment. Patient appears to be a moderate to high risk surgical candidate. As we do not have an immediate need for surgery, we discussed that it would be best for him to return to [facility] for the surgery that he was originally scheduled to have in March of this year. In the meantime, we discussed the importance of weight loss and exercise to get him in better shape for the surgery. He was in agreement with that plan. We will start the patient on a clear liquid diet. If he tolerates liquid intake, he is okay for discharge from my standpoint with follow-up at [facility]. Please call with questions. Time=30min
[2019-07-12] MEDS ORDERED: amLODIPine 10 MG TAB PO SCH (10:00)
[2019-07-12] MEDS ORDERED: LISINOPRIL 20 MG TAB PO SCH (10:00)
[2019-07-12] MEDS ORDERED: cefTRIAXone/NS 1 GM/50 ML 1 GM/50 ML BAG IV SCH (10:00)
[2019-07-12] MEDS ORDERED: hydroCHLOROthiazide 25 MG TAB PO SCH (10:00)
[2019-07-12] MEDS: HEPARIN 5,000 UNIT/1 ML VIAL SUB-Q SCH (11:01)
--- NOTE | 2019-07-12 11:51 | Consultation ---
History of Present Illness Consult date: 07/12/19 Consult reason: pre op evaluation History of present illness: This is a 59-year old male whom is morbidly obese and has a history of sleep apnea, noncompliant with his cpap machine. Patient presented with nausea, vomiting, abdominal pain, found to have ventral hernia on abdominal CT scan. A cardiac consultation has been requested for pre-operative risk assessment if surgery is planned. Patient denies chest pain, palpitations and unusual shortness of breath. There is no prior cardiac history and he had no recent cardiac workup. An ECG is benign, sinus rhythm. No acute ischemic changes. 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 denies: smoking, alcohol abuse, prescription drug abuse Family history: diabetes, hypertension Medications and Allergies Allergies Allergy/AdvReac Type Severity Reaction Status Date / Time No Known Allergies Allergy Verified 09/30/18 06:55 Home Medications Medication Instructions Recorded Confirmed Last Taken Type Amlodipine Besylate [Norvasc] 10 mg PO DAILY 10/01/18 07/11/19 09/30/18 08:00 History Furosemide [Lasix TAB] 40 mg PO BID 10/01/18 07/11/19 09/29/18 22:00 History hydroCHLOROthiazide [HCTZ] 25 mg PO DAILY 10/01/18 07/11/19 09/30/18 08:00 History lisinopriL [Zestril TAB] 20 mg PO DAILY 10/01/18 07/11/19 09/30/18 08:00 History traMADoL [Ultram 50 MG tab] 50 mg PO Q6HR PRN #7 tablet 01/01/19 07/11/19 Unknown Rx Active Meds: Active Medications Acetaminophen (Tylenol) 650 mg PO Q4H PRN PRN Reason: Pain MILD(1-3)/Fever >100.5/GU Amlodipine Besylate (Amlodipine) 10 mg PO DAILY [facility] Last Admin: 07/12/19 11:00 Dose: 10 mg Documented by: Furosemide (Lasix) 40 mg IV 0600,1800 [facility] Last Admin: 07/12/19 05:45 Dose: 40 mg Documented by: Heparin Sodium (Porcine) (Heparin) 5,000 unit SUB-Q Q12HR [facility] Last Admin: 07/12/19 11:01 Dose: 5,000 unit Documented by: Hydrochlorothiazide (Hctz) 25 mg PO DAILY [facility] Last Admin: 07/12/19 11:00 Dose: 25 mg Documented by: Ceftriaxone Sodium (Rocephin/Ns 1 Gm/50 Ml) 1 gm in 50 mls @ 100 mls/hr IV Q24HR [facility]; Protocol Last Admin: 07/12/19 11:01 Dose: 100 mls/hr Documented by: Lisinopril (Zestril) 20 mg PO DAILY [facility] Last Admin: 07/12/19 11:01 Dose: 20 mg Documented by: Ondansetron HCl (Zofran) 4 mg IV Q8H PRN PRN Reason: Nausea And Vomiting Oxycodone/Acetaminophen (Percocet 5/325) 1 tab PO Q6H PRN PRN Reason: Pain, Moderate (4-6) Last Admin: 07/12/19 05:45 Dose: 1 tab Documented by: Sodium Chloride (Sodium Chloride Flush Syringe 10 Ml) 10 ml IV BID [facility] Last Admin: 07/12/19 11:01 Dose: 10 ml Documented by: Sodium Chloride (Sodium Chloride Flush Syringe 10 Ml) 10 ml IV PRN PRN PRN Reason: LINE FLUSH Tramadol HCl (Ultram) 50 mg PO Q6H PRN PRN Reason: PAIN BREAKTHROUGH Physical Examination Vital Signs Temp Pulse Resp BP Pulse Ox 97.6 F 89 22 150/90 91 07/11/19 14:50 07/11/19 14:50 07/11/19 14:50 07/11/19 14:50 07/11/19 14:50 General appearance: no acute distress HEENT: Positive: PERRL Neck: Positive: trachea midline Cardiac: Positive: Reg Rate and Rhythm Results 07/12/19 04:49 07/12/19 04:49 Cardiac Enzymes 07/11/19 Range/Units 15:23 AST 18 (5-40) units/L CBC 07/11/19 07/12/19 Range/Units 15:23 04:49 WBC 11.4 H 9.2 (4.5-11.0) K/mm3 RBC 5.79 H 5.10 H (3.65-5.03) M/mm3 Hgb 15.0 13.8 (11.8-15.2) gm/dl Hct 47.9 H 42.5 (35.5-45.6) % Plt Count 391 318 (140-440) K/mm3 Lymph # 2.2 (1.2-5.4) K/mm3 [place] # 1.1 H (0.0-0.8) K/mm3 Eos # 0.1 (0.0-0.4) K/mm3 Baso # 0.1 (0.0-0.1) K/mm3 Comprehensive Metabolic Panel 07/11/19 07/12/19 Range/Units 15:23 04:49 Sodium 142 142 (137-145) mmol/L Potassium 4.1 3.7 (3.6-5.0) mmol/L Chloride 99.9 100.3 (98-107) mmol/L Carbon Dioxide 30 32 H (22-30) mmol/L BUN 11 11 (9-20) mg/dL Creatinine 1.1 1.0 (0.8-1.5) mg/dL Glucose 123 H 99 (75-100) mg/dL Calcium 9.9 9.0 (8.4-10.2) mg/dL AST 18 (5-40) units/L ALT 20 (7-56) units/L Alkaline Phosphatase 91 (35-129) units/L Total Protein 8.4 H (6.3-8.2) g/dL Albumin 4.4 (3.9-5) g/dL Assessment and Plan - Patient Problems (1) Ventral hernia Current Visit: Yes Status: Acute
[2019-07-12 11:53] VITALS: BP 152/89
--- NOTE | 2019-07-12 12:51 | Discharge Summary ---
Providers - Providers Date of Admission: 07/11/19 20:29 Date of discharge: 07/12/19 Attending physician: BLAYNE PEAN 07/11/19 19:22 Consult to Physician [CONS] Urgent Comment: Dr. Segura spoke with Dr. Bryan @ 1920 Consulting Provider: ABBIE BRYAN Physician Instructions: Reason For Exam: Small bowel obstruction, ventral hernia 07/11/19 19:43 Consult to Physician [CONS] Urgent Comment: Dr. Segura spoke with Dr. Peñaloza @ [id number] Consulting Provider: LELO PEÑALOZA Physician Instructions: Reason For Exam: Preop evaluation Primary care physician: [employer]ACHINE Hospitalization Condition: Fair Disposition: DC-01 TO HOME OR SELFCARE Core Measure Documentation - Palliative Care Palliative Care/ Comfort Measures: Not Applicable - Core Measures Any of the following diagnoses?: none Exam - Constitutional Vitals: Temp Pulse Resp BP Pulse Ox 97.7 F 81 20 152/89 92 07/12/19 11:47 07/12/19 11:47 07/12/19 11:47 07/12/19 11:47 07/12/19 11:52 Plan Activity: no restrictions Diet: other (Clear liquid diet) Additional Instructions: 1.Follow up with PCP in 2-3 days. 2.Follow up with Surgeon at [facility] in 2-3 days Plan of Treatment: 1.Follow up with PCP in 2-3 days. 2.Follow up with Surgeon at [facility] in 2-3 days Follow up with: PRIMARY MD SIOBHAN [Primary Care Provider] - 3-5 Days
== END 2019-07-12 16:00 | disposition home or self-care (01) | DRG 393 ==
LOC: ED 14:35 → 4A 20:29
PROVIDERS: ADMIT Internal Medicine; ATTEND Internal Medicine
PROC: 4A033R1 Measurement of Arterial Saturation, Peripheral, Percutaneous Approach (ICD-10-PCS; principal; 2019-07-11)
DX: K43.6 Other and unspecified ventral hernia with obstruction, without gangrene (principal); J96.01 Acute respiratory failure with hypoxia; N39.0 Urinary tract infection, site not specified; E66.2 Morbid (severe) obesity with alveolar hypoventilation; Z68.43 Body mass index [BMI] 50.0-59.9, adult; I50.22 Chronic systolic (congestive) heart failure; K43.2 Incisional hernia without obstruction or gangrene; I11.0 Hypertensive heart disease with heart failure; I50.9 Heart failure, unspecified; Z87.891 Personal history of nicotine dependence; Z90.49 Acquired absence of other specified parts of digestive tract; Z71.3 Dietary counseling and surveillance; Z83.3 Family history of diabetes mellitus; Z82.49 Family history of ischemic heart disease and other diseases of the circulatory system; Z91.14 Patient's other noncompliance with medication regimen
CPT/HCPCS: 36415; 71045; 71275; 74177; 80048; 80053; 81001; 82803; 83690; 83880; 84484; 85025; 85027; 93005; 94760; G0378; J0696; J1170; J1644; J1940; J2405; J3010; Q9967